=== PATIENT | female | born 1965 | race Caucasian/White ===

== ENCOUNTER 2020-03-16 12:56 | Inpatient (IN) | payer BC ==
[~2020-03-16] VITALS: Ht 152.4 cm; Wt 107.8 kg
[2020-03-16 14:12] LABS: Hematocrit 49.2 % (36.0-46.0); Hemoglobin 16.2 g/dL (12.2-16.2); Mean Corpuscular Hemoglobin 33.4 pg (28.0-32.0); Mean Corpuscular Volume 101.5 fL (80.0-100.0); Platelet Count (auto) 413 10^3/uL (140-450); Red Blood Cells 4.85 10^6/uL (4.0-5.20); Red Cell Distribution Width 13.2 % (11.8-14.3); White Blood Cell 15.6 10^3/uL (4.4-10.8)
[2020-03-16 14:20] LABS: Basophils % (manual) 0 (0.0-2.0); Blast Cells 0; Eosinophils % (manual) 0 (0-7); Metamyelocytes % 0; Myelocytes % 0; Promyelocytes % 0; Reactive Lymphocytes 0
[2020-03-16 14:26] LABS: Alanine Aminotransferase 10 U/L (13-56); Albumin 2.9 g/dL (3.4-5.0); Anion Gap 23 (5-15); Aspartate Aminotransferase 13 U/L (15-37); BUN/Creatinine Ratio 8.9; Blood Urea Nitrogen 11 mg/dL (7-18); Calcium 8.8 mg/dL (8.5-10.1); Chloride 103 mmol/L (98-107); GFR African American 58 mL/min; GFR Non-African American 48 mL/min; Glucose 308 mg/dL (74-106); Potassium 4.5 mmol/L (3.5-5.1); Sodium 132 mmol/L (136-145)
[2020-03-16 14:30] LABS: Band Neutrophils % (manual) 1; Lymphocytes % (manual) 14 (10.0-50.0); Monocytes % (manual) 4 (0-12)
[2020-03-16 14:31] LABS: Alkaline Phosphatase 141 U/L (45-117); Bilirubin, Total 0.5 mg/dL (0.2-1.0); Total Protein 9.5 g/dL (6.4-8.2)
[2020-03-16 14:37] LABS: Carbon Dioxide 6 mmol/L (21-32)
[2020-03-16] MEDS ORDERED: InsuLIN R (HUMAN) 100 UNITS in SODIUM CHL 0.9% 99 ML IV SCH (14:44)
[2020-03-16] MEDS ORDERED: SODIUM CHLORIDE 0.9% 1,000 ML IVB ONE (14:44)
[2020-03-16] MEDS ORDERED: TETANUS-DIPTH-ACEL PERTUSSIS 0.5ML SYR Tdap IM ONE (14:45)
[2020-03-16] MEDS ORDERED: CLINDAMYCIN 600MG IV 50 ML IV ONE (14:45)
[2020-03-16] MEDS ORDERED: DEXTROSE (50%) 50ML SYRG IV PRN ×2 (14:45→19:45)
[2020-03-16] MEDS ORDERED: SODIUM CHLORIDE 0.9% 1,000 ML IV ONE (14:45)
[2020-03-16] MEDS: ACCU-CHEK COMFORT CURVE STRIP VI SCH ×5 (15:38→23:10)
[2020-03-16 15:41] LABS: INR 0.95 (0.9-1.15); Partial Thromboplastin Time 33.4 sec (23.64-32.05)
[2020-03-16] MEDS ORDERED: SODIUM BICARBONATE 8.4 % INJ 50ML VIAL IV ONE ×3 (16:00→21:15)
[2020-03-16] MEDS ORDERED: MORPHINE SULF INJ 2 MG/ML SYRINGE 1ML IV PRN ×2 (17:30→19:45)
[2020-03-16] MEDS ORDERED: NITROGLYCERIN 0.4 MG SL TAB SL PRN (17:30)
[2020-03-16] MEDS: SODIUM CHLORIDE 0.9% 1,000 ML IV SCH (18:08)
[2020-03-16] MEDS ORDERED: SODIUM CHLORIDE 0.9% 1,000 ML IV SCH ×3 (18:44→23:38)
[2020-03-16] MEDS: InsuLIN R (HUMAN) 100 UNITS in SODIUM CHL 0.9% 99 ML IV SCH (19:38)
[2020-03-16] MEDS ORDERED: METOPROLOL TARTRATE 25 MG TAB PO ONE (19:45)
[2020-03-16] MEDS ORDERED: TEMAZEPAM 15 MG CAP PO PRN (19:45)
[2020-03-16] MEDS ORDERED: traMADol HCL 50 MG TAB PO PRN (19:45)
[2020-03-16] MEDS ORDERED: LABETALOL HCL 5 MG/ML 4ML SYRINGE IV PRN (19:45)
[2020-03-16] MEDS ORDERED: ACETAMINOPHEN 500 MG TAB PO PRN (19:45)
[2020-03-16] MEDS ORDERED: PROMETHAZINE HCL 25 MG/ML 1ML IV PRN (19:45)
[2020-03-16] MEDS ORDERED: INSULIN LANTUS (GLARGINE) 1 /0.01ml (100units/ml) SC ONE (19:45)
[2020-03-16] MEDS ORDERED: LACTULOSE 20Gm/30ML SOLN PO PRN (19:45)
[2020-03-16] MEDS ORDERED: METF-372 PO (20:23)
[2020-03-16] MEDS ORDERED: SODIUM BICARBONATE 50ML VIAL 100 ML in SOD CHL 0.45% 1,000 ML IV ONE (21:15)
[2020-03-17 00:27] LABS: Anion Gap 22 (5-15); BUN/Creatinine Ratio 12.8; Blood Urea Nitrogen 11 mg/dL (7-18); Chloride 113 mmol/L (98-107); GFR African American 88 mL/min; GFR Non-African American 73 mL/min; Glucose 203 mg/dL (74-106); Potassium 3.7 mmol/L (3.5-5.1); Sodium 142 mmol/L (136-145)
[2020-03-17] MEDS: ACCU-CHEK COMFORT CURVE STRIP VI SCH ×11 (00:30→21:54)
[2020-03-17 00:36] LABS: Carbon Dioxide 7 mmol/L (21-32)
[2020-03-17] MEDS: SODIUM CHLORIDE 0.9% 1,000 ML IV SCH ×6 (01:38→09:18)
[2020-03-17] MEDS: CLINDAMYCIN 600MG IV 50 ML IV SCH ×4 (01:40→21:52)
[2020-03-17] MEDS: InsuLIN R (HUMAN) 100 UNITS in SODIUM CHL 0.9% 99 ML IV SCH ×6 (02:10→09:15)
[2020-03-17 07:39] LABS: BUN/Creatinine Ratio 10.5; Calcium 8.5 mg/dL (8.5-10.1); Potassium 3.1 mmol/L (3.5-5.1)
[2020-03-17] MEDS ORDERED: cefTRIAXone 1GM/50ML D5W 50 ML IV SCH (09:00)
[2020-03-17 09:49] LABS: Hematocrit 42.6 % (36.0-46.0); Mean Corpuscular Hemoglobin 32.4 pg (28.0-32.0); Mean Corpuscular Hgb Conc. 32.8 g/dL (32.0-36.0); Mean Corpuscular Volume 98.9 fL (80.0-100.0); Platelet Count (auto) 322 10^3/uL (140-450); Red Blood Cells 4.31 10^6/uL (4.0-5.20); Red Cell Distribution Width 12.9 % (11.8-14.3)
[2020-03-17 09:53] LABS: Basophils % (manual) 0 (0.0-2.0); Blast Cells 0; Eosinophils % (manual) 0 (0-7); Metamyelocytes % 0; Myelocytes % 0; Promyelocytes % 0; Reactive Lymphocytes 0
[2020-03-17] MEDS ORDERED: INSULIN LANTUS (GLARGINE) 1 /0.01ml (100units/ml) SC SCH (10:00)
[2020-03-17 10:10] LABS: Band Neutrophils % (manual) 1; Lymphocytes % (manual) 14 (10.0-50.0); Monocytes % (manual) 10 (0-12)
[2020-03-17] MEDS: ENOXAPARIN SOD 40 MG/0.4 ML SYRINGE SC SCH (10:15)
[2020-03-17] MEDS: METOPROLOL TARTRATE 25 MG TAB PO SCH ×2 (10:15→21:52)
[2020-03-17 13:48] LABS: Albumin 2.1 g/dL (3.4-5.0); BUN/Creatinine Ratio 9.9; Calcium 8.1 mg/dL (8.5-10.1)
[2020-03-17 13:52] LABS: Bilirubin, Total 0.4 mg/dL (0.2-1.0); Total Protein 7.2 g/dL (6.4-8.2)
[2020-03-17 13:58] LABS: Potassium 2.8 mmol/L (3.5-5.1)
[2020-03-17] MEDS ORDERED: POTASSIUM CHL 20 Meq TABLET PO ONE (14:15)
[2020-03-17] MEDS ORDERED: POTASSIUM PHOSPHATE 44 MEQ in D5W 5% 250 ML IV ONE (14:15)
[2020-03-17] MEDS ORDERED: INSULIN LANTUS (GLARGINE) 1 /0.01ml (100units/ml) SC ONE (14:30)
[2020-03-17] MEDS ORDERED: DEXTROSE (50%) 50ML SYRG IV PRN (14:45)
--- NOTE | 2020-03-17 16:00 | NUR ---
Telemetry admit from N[facility] HINES admitted to Telemetry unit after SBAR received. Patient oriented to ARJUN CORTEZ RN primary RN, unit, room, bed, and unit policies regarding patient care and visiting hours. Patient now on continuous telemetry monitoring, tele box # [id number]. Patient weighed by bedscale and encouraged to call if they need something. All questions and concerns addressed, patient verbalized understanding.
[2020-03-17] MEDS: SOD CHL 0.45% WITH 20MEQ KCL 1,000 ML IV SCH ×2 (16:09→23:41)
[2020-03-17] MEDS: InsuLIN REG 1unit/0.01ml Soln (100units/ml) SC SCH ×2 (18:03→21:54)
--- NOTE | 2020-03-17 19:10 | NUR ---
Closing Shift Note Patient resting in bed. No distress noted. Will endorse care to the warehouse worker 2nd shift RN.
--- NOTE | 2020-03-17 19:30 | NUR ---
Opening Shift Note Assumed care of patient, awake and alert. No S/S of distress/SOB or pain. Instructed on POC and to call for assist PRN, will continue to monitor for changes Q1hr and PRN.
[2020-03-17 19:40] LABS: BUN/Creatinine Ratio 10.1; Calcium 8.4 mg/dL (8.5-10.1)
[2020-03-17 20:00] VITALS: BP 148/74
[2020-03-17 21:53] VITALS: BP 148/74
[2020-03-17] MEDS: INSULIN LANTUS (GLARGINE) 1 /0.01ml (100units/ml) SC SCH (21:54)
[2020-03-18 01:18] LABS: BUN/Creatinine Ratio 9.8
[2020-03-18 04:51] LABS: Basophils # (auto) 0 10 ^3/uL (0-0.2); Basophils % (auto) 0.5 % (0.0-2.0); Eosinophils # (auto) 0 10 ^3/uL (0-0.8); Eosinophils % (auto) 0.2 % (0.0-7.0); Hemoglobin 12.8 g/dL (12.2-16.2); Lymphocytes # (auto) 1.3 10 ^3/uL (0.4-5.4); Lymphocytes % (auto) 17.2 % (10.0-50.0); Mean Corpuscular Hemoglobin 32.7 pg (28.0-32.0); Mean Corpuscular Hgb Conc. 34.7 g/dL (32.0-36.0); Mean Corpuscular Volume 94.3 fL (80.0-100.0); Monocytes # (auto) 0.9 10 ^3/uL (0-1.3); Monocytes % (auto) 11.5 % (0.0-12.0); Neutrophils # (auto) 5.5 10 ^3/uL (1.6-8.6); Neutrophils % (auto) 70.6 % (37.0-80.0); Nucleated Red Blood Cells % 0.1 %; Platelet Count (auto) 289 10^3/uL (140-450); Red Blood Cells 3.92 10^6/uL (4.0-5.20); Red Cell Distribution Width 12.4 % (11.8-14.3); White Blood Cell 7.8 10^3/uL (4.4-10.8)
[2020-03-18 05:17] LABS: Calcium 8.3 mg/dL (8.5-10.1)
[2020-03-18 05:22] LABS: BUN/Creatinine Ratio 9.9; Bilirubin, Total 0.3 mg/dL (0.2-1.0); Total Protein 6.7 g/dL (6.4-8.2)
[2020-03-18] MEDS: CLINDAMYCIN 600MG IV 50 ML IV SCH ×3 (05:39→22:12)
[2020-03-18 05:44] VITALS: BP 124/68
[2020-03-18] MEDS: InsuLIN REG 1unit/0.01ml Soln (100units/ml) SC SCH ×4 (06:06→22:42)
[2020-03-18] MEDS: ACCU-CHEK COMFORT CURVE STRIP VI SCH ×4 (06:07→22:36)
[2020-03-18] MEDS: INSULIN LANTUS (GLARGINE) 1 /0.01ml (100units/ml) SC SCH ×2 (06:07→22:42)
[2020-03-18 09:00] VITALS: BP 125/68
[2020-03-18] MEDS: cefTRIAXone 1GM/50ML D5W 50 ML IV SCH (09:34)
[2020-03-18] MEDS: ENOXAPARIN SOD 40 MG/0.4 ML SYRINGE SC SCH (09:35)
[2020-03-18] MEDS ORDERED: POTASSIUM CHL 20 Meq TABLET PO ONE (09:45)
[2020-03-18] MEDS ORDERED: LORazepam 2MG/ML-1ML VIAL IV PRN (09:45)
--- NOTE | 2020-03-18 10:00 | NUR ---
WOUND CARE NOTE: Wound care in to see patient per wound care request regarding "Left Foot Wound". Bedside nurse took photograph of patient's wound upon admission for reference. Patient is 54 years old female with admitting diagnosis of DKA, L Foot Cellulitis/Necrotic. Patient is resting in bed in Rm. 208. Patient is awake, alert and oriented. She denies pain at this time. She's ambulatory and she's self turning and repositioning. Her Deshaun score is 19 . Noted patient's L plantar foot to lateral aspect of L foot has 4x15 cm red, open dry blister with blackened L 45th toe. Wound is dark red, with bright red edematous dorsal aspect of L foot. Scant serous drainage noted with foul odor noted. On reports, patient stepped on a wasp few days ago. Dr. Dickson arrived at bedside and talked to patient. MD states that Dr. Bonilla to see patient and possibly needing surgical intervention. Left wound open to air and elevated on pillows. Patient tolerated examination well. RECOMMENDATION: Podiatry consult, will defer wound care recommendation to director of religious activities dietary consult for wound, continue monitoring by wound care while patient is hospitalized. Addendum: 03/18/20 at 1520 by Amira Concepcion RN Amended: Links added.
[2020-03-18] MEDS: METOPROLOL TARTRATE 25 MG TAB PO SCH ×2 (10:06→22:12)
[2020-03-18] MEDS ORDERED: POTASSIUM PHOSPHATE 44 MEQ in D5W 5% 250 ML IV ONE (10:45)
--- NOTE | 2020-03-18 12:30 | NUR ---
Intensive Care Specialist Rounding Intensive Care Specialist at bedside with patient.
--- NOTE | 2020-03-18 12:40 | NUR ---
Compressor Mechanic Bus explained surgical procedure to patient and answered questions the patient had.
--- NOTE | 2020-03-18 12:58 | NUR ---
Surgical consent forms signed.
[2020-03-18 13:00] VITALS: BP 148/72
[2020-03-18 13:59] LABS: INR 1.02 (0.9-1.15); Partial Thromboplastin Time 29.9 sec (23.64-32.05)
[2020-03-18 16:00] VITALS: BP 122/66
[2020-03-18 16:21] LABS: Urine Bacteria NONE SEEN /hpf (None Seen); Urine Blood 3+ /uL (Negative); Urine Budding Yeast LOADED /hpf (None Seen); Urine Hyaline Cast FEW /lpf (0 - 2); Urine Mucus FEW (None Seen); Urine Specific Gravity 1.019 (1.001-1.035); Urine WBC 127 /hpf (0 - 5)
--- NOTE | 2020-03-18 16:25 | NUR ---
Off Unit Patient taken down to PACU for surgery.
[2020-03-18] MEDS ORDERED: LIDOCAINE 1% HCL (LOCAL ANESTH.) INJ 20ML MDV ONE (17:14)
[2020-03-18] MEDS ORDERED: BUPIVACAINE HCL 50 ML ONE (17:14)
[2020-03-18] MEDS ORDERED: ceFAZolin 1GM/50ML 50 ML IV ONE (17:14)
[2020-03-18] MEDS ORDERED: METOCLOPRAMIDE HCL 5MG/ml INJ 2ml VIAL ONE (17:22)
[2020-03-18] MEDS ORDERED: MIDAZOLAM HCL 1MG/1ML-2 ML VIAL ONE (17:22)
[2020-03-18] MEDS ORDERED: GLYCOPYRROLATE 0.2 MG/ML 1ML VIAL ONE (17:26)
[2020-03-18] MEDS ORDERED: diphenhdrAMINE HCL 50 MG/1 ML VL ONE (17:26)
[2020-03-18] MEDS ORDERED: LIDOCAINE 2% (LOCAL ANESTH.) PF 5ml SDV ONE (17:28)
[2020-03-18] MEDS ORDERED: PROPOFOL 10 MG/ML 20 ML IV ONE ×3 (17:29→18:52)
[2020-03-18] MEDS ORDERED: LIDOCAINE HCL 2% TOP JELLY 5ML TOP ONE (17:37)
[2020-03-18] MEDS ORDERED: fentaNYL CITRATE 100 MCG/2 ML VL ONE (17:43)
[2020-03-18] MEDS ORDERED: BACITRACIN INJ 50000 UNIT VIAL ONE (17:46)
[2020-03-18] MEDS ORDERED: ACCU-CHEK COMFORT CURVE STRIP VI ONE (18:00)
[2020-03-18] MEDS ORDERED: ONDANSETRON HCL 4 MG/2 ML VIAL IV PRN (18:00)
[2020-03-18] MEDS ORDERED: HYDROmorphone HCL 2 MG/ML VL IV PRN ×2 (18:00)
[2020-03-18] MEDS ORDERED: NALOXONE HCL 0.4 MG/ML VIAL IV PRN (18:00)
[2020-03-18] MEDS ORDERED: ePHEDrine SULFATE 50 MG/ML AMP IV PRN (18:00)
--- NOTE | 2020-03-18 19:25 | NUR ---
received report from AUGUSTINA Juarez PACU.
--- NOTE | 2020-03-18 19:50 | NUR ---
sewer system supervisor the pt from PACU. VS stable. Denies pain
[2020-03-18] MEDS: SOD CHL 0.45% WITH 20MEQ KCL 1,000 ML IV SCH (20:00)
--- NOTE | 2020-03-18 21:04 | NUR ---
spoke with Dr. Bonilla over the phone regarding pt's status stated he already put in the orders in the computer and ordered to resume the previous diet.
[2020-03-18 22:00] VITALS: BP 145/83
[2020-03-19] MEDS: OXYCODONE W/ ACETAMINOPHEN 5/325MG TABLET PO PRN ×5 (04:16→22:57)
[2020-03-19 05:00] VITALS: BP 125/68
[2020-03-19 05:28] LABS: Basophils # (auto) 0 10 ^3/uL (0-0.2); Basophils % (auto) 0.3 % (0.0-2.0); Eosinophils # (auto) 0 10 ^3/uL (0-0.8); Hematocrit 36.2 % (36.0-46.0); Hemoglobin 12.5 g/dL (12.2-16.2); Lymphocytes # (auto) 0.8 10 ^3/uL (0.4-5.4); Lymphocytes % (auto) 9.1 % (10.0-50.0); Mean Corpuscular Hemoglobin 32.5 pg (28.0-32.0); Mean Corpuscular Hgb Conc. 34.7 g/dL (32.0-36.0); Mean Corpuscular Volume 93.6 fL (80.0-100.0); Monocytes # (auto) 1.1 10 ^3/uL (0-1.3); Monocytes % (auto) 12.2 % (0.0-12.0); Neutrophils # (auto) 6.8 10 ^3/uL (1.6-8.6); Neutrophils % (auto) 78.4 % (37.0-80.0); Platelet Count (auto) 252 10^3/uL (140-450); Red Blood Cells 3.87 10^6/uL (4.0-5.20); Red Cell Distribution Width 12.5 % (11.8-14.3); White Blood Cell 8.7 10^3/uL (4.4-10.8)
[2020-03-19 06:01] LABS: Potassium 3.2 mmol/L (3.5-5.1)
[2020-03-19] MEDS: ACCU-CHEK COMFORT CURVE STRIP VI SCH ×4 (06:01→21:49)
[2020-03-19] MEDS: CLINDAMYCIN 600MG IV 50 ML IV SCH ×3 (06:02→21:50)
[2020-03-19] MEDS: SOD CHL 0.45% WITH 20MEQ KCL 1,000 ML IV SCH ×2 (06:02→21:47)
[2020-03-19 06:13] LABS: BUN/Creatinine Ratio 13.7; Calcium 8.4 mg/dL (8.5-10.1)
[2020-03-19] MEDS: InsuLIN REG 1unit/0.01ml Soln (100units/ml) SC SCH ×4 (06:19→21:46)
[2020-03-19] MEDS: INSULIN LANTUS (GLARGINE) 1 /0.01ml (100units/ml) SC SCH ×2 (06:20→21:46)
--- NOTE | 2020-03-19 07:30 | NUR ---
RECEIVED REPORT FROM NIGHT NURSE. PATIENT RESTING IN BED, NO DISTRESS NOTED. WILL CONTINUE TO MONITOR.
[2020-03-19 09:00] VITALS: BP 107/60
[2020-03-19] MEDS: cefTRIAXone 1GM/50ML D5W 50 ML IV SCH (10:17)
[2020-03-19] MEDS: ENOXAPARIN SOD 40 MG/0.4 ML SYRINGE SC SCH (10:17)
[2020-03-19] MEDS: METOPROLOL TARTRATE 25 MG TAB PO SCH ×2 (10:18→21:49)
--- NOTE | 2020-03-19 10:41 | NUR ---
SPOKE WITH DR QUINTERO ON THE PHONE. UPDATED HIM ON PATIENT STATUS.
--- NOTE | 2020-03-19 11:59 | NUR ---
DOCTOR CHAN AT BEDSIDE.
[2020-03-19 13:00] VITALS: BP 114/62
--- NOTE | 2020-03-19 13:52 | NUR ---
Nutrition Assessment Notes Please refer to link for full assessment notes. Est Energy needs: 5184-4318 kcals (25-30 kcal/kgAdjBW) d/t pt wounds Est Protein needs: 91-114 gms/day (2.0-2.5 gm/kgIBW) d/t pt adiposity Will continue to monitor and reassess prn. Addendum: 03/19/20 at [address] Amended: Links added.
--- NOTE | 2020-03-19 14:30 | NUR ---
DRESSING CHANGE OLD DRESSING TO LEFT FOOT REMOVED, PACKING REMOVED. WOUND CLEANSED, MILD DRAINAGE NOTED ON OLD DRESSING. NO ACTIVE BLEEDING. WOUND PACKED WITH 1/2 " PACKING GAUZE, ABD. PAD, AND KERLIX APPLIED. PATIENT TOLERATED IT WELL, WILL CONTINUE TO MONITOR FOR BLEEDING/ DRAINAGE.
[2020-03-19 17:00] VITALS: BP 117/73
[2020-03-19 22:00] VITALS: BP 115/60
[2020-03-20 04:00] VITALS: BP 108/65
[2020-03-20] MEDS: INSULIN LANTUS (GLARGINE) 1 /0.01ml (100units/ml) SC SCH ×2 (06:44→22:00)
[2020-03-20] MEDS: InsuLIN REG 1unit/0.01ml Soln (100units/ml) SC SCH ×4 (06:45→22:00)
[2020-03-20] MEDS: CLINDAMYCIN 600MG IV 50 ML IV SCH ×3 (06:46→21:41)
[2020-03-20] MEDS: OXYCODONE W/ ACETAMINOPHEN 5/325MG TABLET PO PRN ×4 (06:47→21:41)
[2020-03-20] MEDS: ACCU-CHEK COMFORT CURVE STRIP VI SCH ×4 (06:49→22:00)
--- NOTE | 2020-03-20 07:30 | NUR ---
RECEIVED REPORT FROM NIGHT NURSE. PATIENT RESTING IN BED, NO DISTRESS NOTED. WILL CONTINUE TO MONITOR.
[2020-03-20 08:10] VITALS: BP 125/65
[2020-03-20] MEDS: cefTRIAXone 1GM/50ML D5W 50 ML IV SCH (09:35)
[2020-03-20] MEDS: METOPROLOL TARTRATE 25 MG TAB PO SCH ×2 (09:35→21:44)
[2020-03-20] MEDS: ENOXAPARIN SOD 40 MG/0.4 ML SYRINGE SC SCH (09:35)
[2020-03-20] MEDS: SOD CHL 0.45% WITH 20MEQ KCL 1,000 ML IV SCH ×2 (10:25→23:45)
[2020-03-20 10:46] LABS: Calcium 8.7 mg/dL (8.5-10.1); Magnesium 2.1 mg/dL (1.6-2.6); Potassium 3.6 mmol/L (3.5-5.1)
[2020-03-20 10:49] LABS: BUN/Creatinine Ratio 17.9
--- NOTE | 2020-03-20 10:55 | NUR ---
King BANKS NP AT BEDSIDE.
--- NOTE | 2020-03-20 11:00 | NUR ---
EKG COMPLETED AND PLACED IN CHART.
--- NOTE | 2020-03-20 12:45 | NUR ---
DRESSING CHANGE OLD DRESSING TO LEFT FOOT REMOVED, PACKING REMOVED. WOUND CLEANSED. NO ACTIVE BLEEDING. WOUND PACKED WITH 1/2 " PACKING GAUZE, ABD. PAD, AND KERLIX APPLIED. PATIENT TOLERATED IT WELL, WILL CONTINUE TO MONITOR FOR BLEEDING/ DRAINAGE.
[2020-03-20 13:00] VITALS: BP 145/82
[2020-03-20 13:18] LABS: Cholesterol 108 mg/dL (< 200)
[2020-03-20 13:20] LABS: HDL Cholesterol 50 mg/dL (40-59); LDL Cholesterol 47 mg/dL (< 100); Triglycerides 82 mg/dL (< 150)
[2020-03-20 17:27] VITALS: BP 131/78
--- NOTE | 2020-03-20 19:35 | NUR ---
Opening Shift Note Assumed care of patient, awake and alert. No S/S of distress/SOB or pain. Dressing to left foot intact and dry. Instructed on POC and to be NPO after MN. For Stress test tomorrow, patient verbalized understanding. Instructed to call for assist PRN, bed in lowest position, call light within reach, will continue to monitor for changes Q1hr and PRN.
[2020-03-20 20:00] VITALS: BP 120/56
[2020-03-20] MEDS: ATORVASTATIN 20 MG TAB PO SCH (21:41)
--- NOTE | 2020-03-20 22:00 | NUR ---
Dressing to left foot changed. Cleansed with wound cleanser, packed with Iodoform and covered with ABD pad and wrapped with kerlix. Patient tolerated well
[2020-03-21 05:00] VITALS: BP 121/62
[2020-03-21] MEDS: CLINDAMYCIN 600MG IV 50 ML IV SCH ×3 (06:18→22:10)
[2020-03-21] MEDS: InsuLIN REG 1unit/0.01ml Soln (100units/ml) SC SCH ×4 (06:19→22:14)
[2020-03-21] MEDS: ACCU-CHEK COMFORT CURVE STRIP VI SCH ×4 (06:19→22:10)
[2020-03-21] MEDS: INSULIN LANTUS (GLARGINE) 1 /0.01ml (100units/ml) SC SCH ×2 (06:19→22:13)
--- NOTE | 2020-03-21 06:19 | NUR ---
IV insertion IV access obtained, via clean sterile technique by inserting 20 gauge catheter at LFA after [1] attempt(s). IV secured properly. No trauma to site. Patient tolerated well. NOTE: []
--- NOTE | 2020-03-21 07:30 | NUR ---
RECEIVED REPORT FROM NIGHT NURSE. PATIENT RESTING IN BED, NO DISTRESS NOTED. NPO FOR PROCEDURE. WILL CONTINUE TO MONITOR.
[2020-03-21 09:00] VITALS: BP 158/79
[2020-03-21] MEDS ORDERED: ADENOSINE 97 MG in GIVE UN-DILUTED 0 ML IV STA (09:39)
[2020-03-21] MEDS: OXYCODONE W/ ACETAMINOPHEN 5/325MG TABLET PO PRN ×4 (10:00→23:31)
[2020-03-21] MEDS ORDERED: POTASSIUM CHL 20 Meq TABLET PO ONE (10:45)
[2020-03-21 11:49] VITALS: BP 140/86
[2020-03-21] MEDS: METOPROLOL TARTRATE 25 MG TAB PO SCH ×2 (13:46→21:51)
[2020-03-21] MEDS: cefTRIAXone 1GM/50ML D5W 50 ML IV SCH (13:46)
[2020-03-21] MEDS: ENOXAPARIN SOD 40 MG/0.4 ML SYRINGE SC SCH (13:46)
--- NOTE | 2020-03-21 15:03 | NUR ---
IV REMOVAL IV TO RIGHT WRIST REMOVED. SWELLING AND REDNESS NOTED TO INSERTION SITE. CATHETER TIP INTACT, PRESSURE DRESSING APPLIED, ICE PACK GIVEN.
--- NOTE | 2020-03-21 16:39 | NUR ---
DOCTOR LATHA AT BEDSIDE. ORDERS FOR WOUND VAC TO BE APPLIED NOW. WILL NOTIFY WOUND CARE NURSE, NAOMI.
[2020-03-21 17:00] VITALS: BP 138/79
--- NOTE | 2020-03-21 17:00 | NUR ---
WOUND CARE NURSE AT BEDSIDE.
--- NOTE | 2020-03-21 17:42 | NUR ---
WOUND CARE NOTE: Wound care in to see patient to apply wound vac to patient's L Foot wound per Dr. Marcano's order. Patient undergone Irrigation and Debridement of L Foot, Left Foot Ray amputation, removal of all non-viable tissue and bone by Dr. Bonilla. Patient is resting in bed in Rm 208. Patient is awake, alert and oriented. Patient is premedicated for pain by bedside nurse prior dressing change. She's self turning and repositioning and her Deshaun score is 14. Patient education given regarding NPWT, verbalized understanding. Removed patient's L foot wound dressing and packing. Cleansed patient's L Foot wound with NS,patted dry with gauze. Patient has large open wound from L plantar to L dorsal foot. L foot wound measuring 6x11.5x2.2cm. Wound bed is red with granulation tissue noted to plantar aspect of foot, yellow adipose tissue to dorsal aspect of left foot with visible bone noted. Periwound is pink with mild edema, minimal sanguineous drainage noted, no odor noted, pedal pulse present. Applied Sure Prep skin protectant to domenic wound and drape to dorsal aspect of L foot. Applied one small piece petrolatum gauze to protect exposed bone. Fill wound cavity with two pieces black GranuFoam. Secured foam dressing with transparent drape and applied trac pad. Connected tubings and run wound vac as ordered at 125 mmHg continuos. Good suction noted, no leak detected. New photograph of wound are taken for reference. Patient tolerated well. Elevated patient's LLE on pillows. RECOMMENDATION: Q3Days/PRN dressing change to L foot wound per MD order, continue with skin/wound plan of care, continue monitoring by wound care while patient is hospitalized. Addendum: 03/21/20 at 1816 by Amira Concepcion RN Amended: Links added.
--- NOTE | 2020-03-21 18:39 | NUR ---
HOME WOUND VAC: Home wound vac form request filled up and signed by Dr. Marcano. Placed in patient's chart for social service
--- NOTE | 2020-03-21 19:35 | NUR ---
Opening Shift Note Assumed care of patient, asleep at this time. No S/S of distress/SOB or pain. Noted left foot dressing intact and connected to wound vac. Bed in lowest and locked position, call light within reach, will continue to monitor for changes Q1hr and PRN.
[2020-03-21] MEDS: ATORVASTATIN 20 MG TAB PO SCH (21:50)
[2020-03-21 22:00] VITALS: BP 148/81
[2020-03-22 05:49] VITALS: BP 140/80
[2020-03-22] MEDS: CLINDAMYCIN 600MG IV 50 ML IV SCH ×3 (06:33→22:32)
[2020-03-22] MEDS: ACCU-CHEK COMFORT CURVE STRIP VI SCH ×4 (06:34→22:32)
[2020-03-22] MEDS: INSULIN LANTUS (GLARGINE) 1 /0.01ml (100units/ml) SC SCH ×2 (06:35→22:00)
[2020-03-22] MEDS: InsuLIN REG 1unit/0.01ml Soln (100units/ml) SC SCH ×4 (06:38→22:00)
--- NOTE | 2020-03-22 08:00 | NUR ---
RECEIVED PATIENT ALERT AND ORIENTED X4, NOT IN DISTRESS, CLEAR LS IN BILATERAL UPPER AND LOWER LUNG LOBES, RR=18 SAT=95%, DEEP BREATHING AND COUGHING WAS ENCOURAGED, DEMONSTRATED AND VERBALIZED UNDERSTANDING, DENIED SOB AND CP AT THIS MOMENT SR R=78 ON TELE MONITOR, ABDOMEN SOFT WITH ACTIVE BS, TOLERATED PROVIDED BREAKFAST 100%, LAST BM=03/14/20 REPORTED, RINCON CATH IN PLACE AND PATENT, DRAINING CLEAR YELLOW URINE, GENERAL SKIN INTACT WARM TO TOUCH, LT. FOOT DRESSING DRY AND INTACT, WOUND VAC IN PLACE AND PATENT, NO DRAIN OUT PUT NOTED, RESTING ON BED, HEAD OF BED ELEVATED, BED ON LOW POSITION, RAILS UP X2, CALL LIGHT ON REACH, PENDING HEART CATH ON 03/23/20 ORDERED, WILL CONTINUE MONITORING.
[2020-03-22] MEDS: cefTRIAXone 1GM/50ML D5W 50 ML IV SCH (08:57)
[2020-03-22] MEDS: ENOXAPARIN SOD 40 MG/0.4 ML SYRINGE SC SCH (08:59)
[2020-03-22] MEDS: METOPROLOL TARTRATE 25 MG TAB PO SCH ×2 (08:59→22:30)
[2020-03-22 09:00] VITALS: BP 154/84
[2020-03-22] MEDS: OXYCODONE W/ ACETAMINOPHEN 5/325MG TABLET PO PRN ×3 (09:08→23:58)
--- NOTE | 2020-03-22 11:00 | NUR ---
WOUND CARE NOTE: IN TO ASSESS FUNCTION OF WOUND VAC DRESSING TO LEFT FOOT AT THIS TIME. VAC IS RUNNING AT 125 MM/HG CONTINUOUS. GOOD SUCTION, NO LEAKS DETECTED. WOUND CARE TEAM WILL CONTINUE TO MONITOR.
--- NOTE | 2020-03-22 12:02 | NUR ---
Nutrition Followup Notes Wt: 113.8 kg Pt` sleeping with no family by bedside. per records pt with abnormal stress test and to have [facility] jody. pt with no distress noted currently on CCHO 45 gm diet with inadequate PO of < 50% x 4 per RN doc Est Energy needs: 0939-9712 kcals (25-30 kcal/kgAdjBW) d/t pt wounds, Est Protein needs: 91-114 gms/day (2.0-2.5 gm/kgIBW) dt pt adiposity. Will continue to monitor and reassess prn. LABS: GLU 230 H GI: Pt had 1 BM 03/16 per RN doc BS: 16 mod risk Refer to wound assessment report for full details. PES: 1) Obesity aeb 251% IBW and BMI of 49.1 kg/m2 r/t energy intake in excess of energy needs 2) Food and nutrition knowledge deficit aeb wounds, DKA diagnosis, request for DM education class schedule r/t dietary non-compliance 3) Altered nutrition related lab values hyperglycemia, elev A1c, severe hypoalbuminemia Will continue to monitor skin status, PO intake. F/u mod 3-5 days Rec: 1) Continue to closely monitor pt PO intake to meet at least 75% of meals. 2) Suggest a CCHO 60g diet. 4) Consider a daily MVI with 500mg VitC BID. 5) If albumin continues trending down, consider Prostat 1 pkt BID. 6) Refer pt to RD/CDE for nutrition education upon D/C. 7) Continue current plan of care
[2020-03-22 12:27] LABS: INR 1.07 (0.9-1.15)
[2020-03-22 12:54] VITALS: BP 129/74
[2020-03-22] MEDS: ASPirin 81 mg TAB PO SCH (13:44)
--- NOTE | 2020-03-22 14:10 | NUR ---
Midline Placement: Patient educated on need for midline placement. All risks and benefits explained and all questions and concerns addresses prior to procedure. 18g/10cm midline inserted via left cephalic vein using Ultrasound. Sterile technique utilized. Blood return obtained from lumen and flushed easily with NS using proper technique. Midline secured with saline lock; biodisc and occlusive dressing applied. Primary RN notified.
--- NOTE | 2020-03-22 16:15 | NUR ---
Assessment Patient is a 55-year-old female who is alert and oriented. Prior to admission patient lived home with family and function independently. Patient can care for her own ADLs. Per patient she does not have any medical equipment now. Per patient she will return to her prior living arrangements post discharge and family will transport her home. Advise patient there is a social service consult for home health for wound care, wound vac, and IV abx. Informed patient clinical information will be faxed to contracted agency for home health and wound vac. Informed patient YAHIR Robbins will complete the IV abx. Informed patient she has the right to participate in all discharge planning. Patient verbalized understanding and agreed to discharge plan. Faxed clinical information to [facility] to deliver wheelchair to bed side, [facility] to deliver wound vac supply to bedside and to health plan to assist with contracted home health agencies. Faxed clinical information to [facility] and [facility]. Per Dinorah with [facility] they do not have nurse availability at this time. Pending on [facility]. Addendum: 03/22/20 at 1618 by ERENDIRA LAWSON Amended: Links added.
[2020-03-22 17:00] VITALS: BP 139/85
--- NOTE | 2020-03-22 19:35 | NUR ---
Opening Shift Note Assumed care of patient, awake and alert. No S/S of distress/SOB or pain. Noted left foot dressing intact and connected to wound vac. Instructed on POC and to be NPO after MN, for C tomorrow, patient verbalized understanding. Bed in lowest and locked position, call light within reach, will continue to monitor for changes Q1hr and PRN
--- NOTE | 2020-03-22 19:53 | NUR ---
REPORT WAS GIVEN TO THE GENERAL COUNSELOR RN.
[2020-03-22 22:00] VITALS: BP 151/83
[2020-03-22] MEDS: ATORVASTATIN 20 MG TAB PO SCH (22:28)
[2020-03-23] VITALS (11 sets, daily range): BP systolic 114–145; BP diastolic 58–85
[2020-03-23] MEDS: ACCU-CHEK COMFORT CURVE STRIP VI SCH ×4 (06:23→22:15)
[2020-03-23] MEDS: CLINDAMYCIN 600MG IV 50 ML IV SCH (06:23)
[2020-03-23] MEDS: INSULIN LANTUS (GLARGINE) 1 /0.01ml (100units/ml) SC SCH ×2 (06:24→22:12)
[2020-03-23] MEDS: InsuLIN REG 1unit/0.01ml Soln (100units/ml) SC SCH ×4 (06:24→22:00)
--- NOTE | 2020-03-23 06:47 | NUR ---
Per patient, spoke to her already about the risks and benefits of left heart cath. Patient signed consent form and attached to chart. CHG wipes done, maintained on NPO, will endorse to jeramie JACKMAN
[2020-03-23 07:16] LABS: Basophils # (auto) 0 10 ^3/uL (0-0.2); Basophils % (auto) 0.2 % (0.0-2.0); Eosinophils # (auto) 0.1 10 ^3/uL (0-0.8); Eosinophils % (auto) 1.4 % (0.0-7.0); Hematocrit 41.5 % (36.0-46.0); Lymphocytes # (auto) 1.1 10 ^3/uL (0.4-5.4); Lymphocytes % (auto) 19.3 % (10.0-50.0); Mean Corpuscular Hemoglobin 32.2 pg (28.0-32.0); Mean Corpuscular Hgb Conc. 33.8 g/dL (32.0-36.0); Mean Corpuscular Volume 95.2 fL (80.0-100.0); Monocytes # (auto) 0.7 10 ^3/uL (0-1.3); Monocytes % (auto) 13.2 % (0.0-12.0); Neutrophils # (auto) 3.7 10 ^3/uL (1.6-8.6); Neutrophils % (auto) 65.9 % (37.0-80.0); Nucleated Red Blood Cells % 0.1 %; Platelet Count (auto) 316 10^3/uL (140-450); Red Blood Cells 4.35 10^6/uL (4.0-5.20); White Blood Cell 5.6 10^3/uL (4.4-10.8)
[2020-03-23 07:34] LABS: INR 1.03 (0.9-1.15); Partial Thromboplastin Time 28.3 sec (23.64-32.05)
[2020-03-23 07:36] LABS: BUN/Creatinine Ratio 18.6
[2020-03-23] MEDS: METOPROLOL TARTRATE 25 MG TAB PO SCH ×2 (07:51→22:08)
[2020-03-23] MEDS: cefTRIAXone 1GM/50ML D5W 50 ML IV SCH (07:51)
[2020-03-23] MEDS: OXYCODONE W/ ACETAMINOPHEN 5/325MG TABLET PO PRN ×3 (07:53→22:13)
--- NOTE | 2020-03-23 08:00 | NUR ---
LOWER LUNG LOBES, RR=18 SAT=97%, DEEP BREATHING AND COUGHING WAS ENCOURAGED, DEMONSTRATED AND VERBALIZED UNDERSTANDING, DENIED SOB AND CP AT THIS MOMENT SR R=70 ON TELE MONITOR, ABDOMEN SOFT WITH ACTIVE BS, KEEP NPO ORDERED, LAST BM=03/22/20 REPORTED, RINCON CATH IN PLACE AND PATENT, DRAINING CLEAR YELLOW URINE, GENERAL SKIN INTACT WARM TO TOUCH, LT. FOOT DRESSING DRY AND INTACT, WOUND VAC IN PLACE AND PATENT, NO DRAIN OUT PUT NOTED, RESTING ON BED, HEAD OF BED ELEVATED, BED ON LOW POSITION, RAILS UP X2, CALL LIGHT ON REACH, PENDING HEART CATH TODAY ORDERED, PACKING FLOOR WORKER CONTACTED FOR FOLLOW UP, WILL CONTINUE MONITORING.
--- NOTE | 2020-03-23 08:34 | NUR ---
D/C Planning Received a follow up called from [facility] advising me they will not be able to accommodate patient needs.
[2020-03-23] MEDS ORDERED: LIDOCAINE 2%HCL (LOCAL ANESTH.) INJ 20ML MDV ONE (09:01)
[2020-03-23] MEDS ORDERED: ANGIOMAX 250 MG VIAL IV ONE (09:06)
[2020-03-23] MEDS ORDERED: SODIUM CHL 0.9% 0 ML ONE (09:07)
[2020-03-23] MEDS ORDERED: MIDAZOLAM HCL 1MG/1ML-2 ML VIAL ONE (09:07)
[2020-03-23] MEDS ORDERED: VERAPAMIL 2.5MG/ML INJ 2ML VIAL IV ONE (09:07)
[2020-03-23] MEDS ORDERED: fentaNYL CITRATE 100 MCG/2 ML VL ONE (09:07)
[2020-03-23] MEDS ORDERED: HEPARIN SODIUM (PORCINE) 5000 UNITS/ML 1ML VIAL ONE (09:07)
--- NOTE | 2020-03-23 09:07 | NUR ---
CONSENT ON CHART, CHECK LIST COMPLETED, NOT IN DISTRESS, DENIED PAIN, VS T=98.6 RR=16 SAT=98% P=72 AZ=421/55, WENT ON BED TO IS MANAGER, WILL CONTINUE FOLLOW UP.
[2020-03-23] MEDS: ENOXAPARIN SOD 40 MG/0.4 ML SYRINGE SC SCH (10:00)
[2020-03-23] MEDS: ASPirin 81 mg TAB PO SCH (10:00)
--- NOTE | 2020-03-23 10:33 | NUR ---
I spoke with Dr. Dickson regarding the plan of care for this patient-I asked her to clarify the home IV ATB order-stating specific medication, dose and frequency. Per Dr. Dickson, patient will not discharge home today-most likely tomorrow.
--- NOTE | 2020-03-23 10:56 | NUR ---
WOUND VAC CHECK: Wound care in for wound vac daily monitoring. Patient's L foot wound vac dressing remain intact and connected to Ulta Vac, functioning well at 125 mmHg continuos as ordered. Good seal noted, no leak detected. No drainage noted in canister. Will continue to monitor.
--- NOTE | 2020-03-23 10:57 | NUR ---
I faxed home IV ATB order/clinical information to [facility].
--- NOTE | 2020-03-23 11:52 | NUR ---
D/C planning Received a follow up called from Best with [facility] advising me wheelchair will be deliver to bedside between 11-13:00 today.
--- NOTE | 2020-03-23 12:30 | NUR ---
AT 1045 CAME BACK FROM HEART CATH, ALERT AND ORIENTED X4, NOT IN DISTRESS, DENIED PAIN, RR=16 SAT=98% P=82, RT.W ANGIO PRESSURE DRESSING DRY AND INTACT, NO EDEMA OR ECCHYMOSIS NOTED, POST HEART CATH PROTOCOL AND PRESSURE DRESSING PROTOCOL FOLLOWED ORDERED, RESTING ON BED, WILL CONTINUE MONITORING.
[2020-03-23] MEDS: CLINDAMYCIN HCL 150 MG CAP PO SCH ×2 (13:14→22:07)
--- NOTE | 2020-03-23 15:21 | NUR ---
D/C planning Faxed clinical information to [facility]. Per Paulette she will contact patient health plan and will follow up in the morning regarding acceptance.
--- NOTE | 2020-03-23 17:50 | NUR ---
WOUND CARE NOTE: Dr. Marcano came, removed patient's L foot wound vac dressing to examine patient's L Foot wound. MD ordered apply new wound vac dressing. Patient is resting in bed in Rm. 208. Patient is awake, alert and oriented. She's medicated for pain by her bedside nurse prior dressing change. Patient's L dorsal foot wound measuring 8x9cm. Wound is red with yellow slough, domenic wound is pink. Visible tendon noted. Plantar aspect of L foot wound measuring 5.5x6x1.5cm. Wound is red with granulation tissue noted and sexton/brown slough. Minimal serous drainage noted, no odor noted. Cleansed patient's L foot wound with NS,patted dry with gauze. Applied skin protectant and transparent drape to domenic wound to protect. Fill wound cavity with one piece medium black Granu foam dressing, secured with transparent drape. Applied trac pad and connected to wound vac. Run wound vac at 125 mmHg as prescribed. Good suction noted, no leak detected. Patient tolerated examination well. New photograph of wound are taken for reference. RECOMMENDATION:Continuation of all wound care orders prescribed by MD,continue with skin/wound plan of care, continue monitoring by wound care while patient is hospitalized. Addendum: 03/23/20 at 1823 by Amira Concepcion RN Amended: Links added.
--- NOTE | 2020-03-23 18:00 | NUR ---
DR. Bishop OPENED THE WOUND, WOUND DRESSING WAS CHANGED BY THE WOUND CARE, TOLERATED WELL, NO DRAIN OUT PUT FROM WOUND VAC NOTED, HOME WOUND VAC DELIVERED TO THE ROOM, EDUCATION WAS PROVIDED, VERBALIZED UNDERSTANDING, RESTING ON BED,NOT IN DISTRESS, DENIED PAIN, WILL CONTINUE MONITORING.
--- NOTE | 2020-03-23 19:41 | NUR ---
REPORT WAS GIVEN TO THE REPLANTING MACHINE CREWMAN RN.
[2020-03-23] MEDS: ATORVASTATIN 20 MG TAB PO SCH (22:07)
[2020-03-24 05:05] VITALS: BP 144/84
[2020-03-24] MEDS: CLINDAMYCIN HCL 150 MG CAP PO SCH ×2 (06:43→15:07)
[2020-03-24] MEDS: InsuLIN REG 1unit/0.01ml Soln (100units/ml) SC SCH ×3 (06:45→17:00)
[2020-03-24] MEDS: ACCU-CHEK COMFORT CURVE STRIP VI SCH ×3 (06:46→17:00)
[2020-03-24] MEDS: INSULIN LANTUS (GLARGINE) 1 /0.01ml (100units/ml) SC SCH (06:48)
--- NOTE | 2020-03-24 06:59 | NUR ---
Pt medicated at the beginning of shift and at the end, slept well, no s/s of distress, aware of consult with wound care nurse for wound vac at co.
--- NOTE | 2020-03-24 08:00 | NUR ---
Morning note Patient resting in bed with even and unlabored respirations, no distress noted. Instructed patient on POC, fall precautions and to call for assistance as needed. Patient verbalized understanding. Wound vac in place per MD order. Fall precautions in place with call light within reach.
[2020-03-24 09:22] VITALS: BP 140/86
[2020-03-24] MEDS ORDERED: CEFTRIAXONE SODIUM 2 GM in D5W 5% 50 ML IV SCH (10:00)
--- NOTE | 2020-03-24 10:04 | NUR ---
I called Omid at [facility] [phone] to let him know that [facility] will be following patient, plan is for discharge home today. Per Omid he will call me back to let me know when delivery time will be.
[2020-03-24] MEDS: ENOXAPARIN SOD 40 MG/0.4 ML SYRINGE SC SCH (10:14)
[2020-03-24] MEDS: ASPirin 81 mg TAB PO SCH (10:14)
[2020-03-24] MEDS: METOPROLOL TARTRATE 25 MG TAB PO SCH (10:15)
[2020-03-24] MEDS ORDERED: MET25T PO (10:16)
[2020-03-24] MEDS ORDERED: LOSA25TA38 PO (10:16)
[2020-03-24] MEDS ORDERED: CLIN150C7 PO (10:16)
[2020-03-24] MEDS ORDERED: ASPI81CH43 PO (10:16)
[2020-03-24] MEDS ORDERED: SACC1CAP3 PO (10:18)
[2020-03-24] MEDS ORDERED: METF-372 PO (10:18)
[2020-03-24] MEDS ORDERED: SITA50TA PO (10:18)
--- NOTE | 2020-03-24 10:23 | NUR ---
Cazares catheter discontinued Order to discontinue Cazares catheter. Cazares discontinued with clean technique following deflation of balloon. Patient tolerated well with no complaints of pain. 500 ml of clear yellow urine drained.
--- NOTE | 2020-03-24 10:23 | NUR ---
PT at bedside - RE: Crutches Viridiana, PT, aware of MD's order for crutches. PT to evaluate patient.
[2020-03-24] MEDS ORDERED: ATOR10TA52 PO (10:36)
--- NOTE | 2020-03-24 11:03 | NUR ---
I received a call from Omid at [facility], he said they will deliver IV ATB to patient's home between 8-10pm Misty webster [facility] to visit patient tomorrow.
[2020-03-24] MEDS: OXYCODONE W/ ACETAMINOPHEN 5/325MG TABLET PO PRN (12:00)
--- NOTE | 2020-03-24 12:00 | NUR ---
RE: Percocet Medication was scanned by this RN. Computer shut off and documentation was not able to be saved. Medication manually documented.
[2020-03-24 12:53] VITALS: BP 119/79
--- NOTE | 2020-03-24 15:21 | NUR ---
D/C planning Received a follow up called from Paulette with [facility] [phone] advising me patient has a 20% co-pay of 15dlls per visit. Spoke to patient regarding home health co-pay and if there is someone at home who can assist with the IV abx. Per patient she can do the IV abx her self. Patient agrees to pay the 15dll co-pay every visit. Placed follow up called to Paulette with [facility] advising her patient agrees to pay the co-pay. Per Paulette with [facility] patient will be seen within 24hrs. Informed AUGUSTINA Solis. YAHIR Trevino with patient health plan was contact and will provide authorization to home health agency. Regarding social service consult for bed side commode. Faxed clinical information to [facility] and YAHIR Trevino with patient health plan. Per Best with [facility] they will deliver bedside commode to patient upon discharge day.
--- NOTE | 2020-03-24 15:57 | NUR ---
WOUND CARE NOTE: Wound care in for daily monitoring of wound vac functioning. Patient is resting in bed in Rm 208. Patient is awake, alert and oriented. Patient's L foot wound vac dressing is C/D/I and connected to Ulta vac, functioning well at 125 mmHg continuos. Patient has DC order today and her home wound vac and supplies at bedside. Switch patient's wound vac to home vac at ordered setting of 125 mmHg continuos. Good suction noted, no leak detected. Leave home vac charging at bedside while awaiting DC. Patient tolerated well.
--- NOTE | 2020-03-24 17:00 | NUR ---
Discharge Discharge education and paperwork provided to the patient per MD order. Patient verbalized understanding. Patient reports having a follow up appointment with Dr. Bonilla on 03/25/20. IV to the LFA removed with aseptic technique, catheter intact. Dressing applied. Patient tolerated well, no trauma to site. Midline to the RENETTA remains in place per Dr. Dickson's order for home IV antibiotics. Telemonitor removed and returned. Patient has DME wheelchair at bedside. Patient has personal wound vac in place. Patient reports having all personal belongings. Respirations even and unlabored, no distress noted. Patient's spouse is coming to the hospital to transport patient. Patient requesting her spouse assist her with her personal belongings and transferring to wheelchair.
--- NOTE | 2020-03-24 17:35 | NUR ---
Patient's spouse arrived to bedside Patient requesting to receive assistance from her spouse and not staff. Instructed patient to notify staff if assistance is needed. Patient verbalized understanding.
--- NOTE | 2020-03-24 18:30 | NUR ---
Patient transported to private vehicle via wheelchair accompanied by staff member and patient's spouse. Patient reports having all personal belongings. Respirations even and unlabored, no distress noted. Patient has personal wound vac in place per MD order. Patient has DME wheelchair.
== END 2020-03-24 18:26 | disposition home health service (06) | DRG 853 ==
LOC: EDBD 12:56 → ER 12:56 → TELE 12:57 → TELE-CENTR 03-17 16:58
PROVIDERS: ADMIT Internal Medicine; ATTEND Internal Medicine
PROC: 0Y6N0ZF Detachment at Left Foot, Partial 5th Ray, Open Approach (ICD-10-PCS; principal; 2020-03-18 17:17)
PROC: 4A023N7 Measurement of Cardiac Sampling and Pressure, Left Heart, Percutaneous Approach (ICD-10-PCS; 2020-03-23)
PROC: B2111ZZ Fluoroscopy of Multiple Coronary Arteries using Low Osmolar Contrast (ICD-10-PCS; 2020-03-23)
PROC: B2151ZZ Fluoroscopy of Left Heart using Low Osmolar Contrast (ICD-10-PCS; 2020-03-23)
DX: A41.9 Sepsis, unspecified organism (principal); A48.0 Gas gangrene; E11.10 Type 2 diabetes mellitus with ketoacidosis without coma; I49.01 Ventricular fibrillation; N17.0 Acute kidney failure with tubular necrosis; E43 Unspecified severe protein-calorie malnutrition; E11.52 Type 2 diabetes mellitus with diabetic peripheral angiopathy with gangrene; L03.116 Cellulitis of left lower limb; M86.8X7 Other osteomyelitis, ankle and foot; N39.0 Urinary tract infection, site not specified; I50.32 Chronic diastolic (congestive) heart failure; Z68.42 Body mass index [BMI] 45.0-49.9, adult; E11.51 Type 2 diabetes mellitus with diabetic peripheral angiopathy without gangrene; E11.621 Type 2 diabetes mellitus with foot ulcer; E11.69 Type 2 diabetes mellitus with other specified complication; E66.01 Morbid (severe) obesity due to excess calories; F40.240 Claustrophobia; I10 Essential (primary) hypertension; I49.3 Ventricular premature depolarization; L97.529 Non-pressure chronic ulcer of other part of left foot with unspecified severity; E83.39 Other disorders of phosphorus metabolism; E87.6 Hypokalemia; Z20.828 Contact with and (suspected) exposure to other viral communicable diseases; Z79.84 Long term (current) use of oral hypoglycemic drugs; Z80.0 Family history of malignant neoplasm of digestive organs; Z80.1 Family history of malignant neoplasm of trachea, bronchus and lung; Z80.3 Family history of malignant neoplasm of breast; Z80.41 Family history of malignant neoplasm of ovary; Z80.8 Family history of malignant neoplasm of other organs or systems; Z81.8 Family history of other mental and behavioral disorders; Z82.0 Family history of epilepsy and other diseases of the nervous system; Z82.3 Family history of stroke; Z82.49 Family history of ischemic heart disease and other diseases of the circulatory system; Z82.5 Family history of asthma and other chronic lower respiratory diseases; Z82.62 Family history of osteoporosis; Z83.3 Family history of diabetes mellitus
CPT/HCPCS: 36415; 36600; 71045; 73630; 73700; 78452; 80048; 80053; 80061; 80320; 81001; 82805; 82962; 83036; 83605; 83735; 83880; 84100; 84443; 84484; 85007; 85025; 85027; 85610; 85652; 85730; 86850; 86900; 86901; 87040; 87070; 87075; 87076; 87077; 87186; 87205; 88302; 90471; 90715; 93005; 93017; 93306; 93926; 96365; 96366; 96367; 96372; 96376; 97163; 99152; 99291; G0378; J0153; J0690; J0696; J1815; J2001; J2250; J2704; J3490; J7060

== ENCOUNTER → 2020-04-15 | Day surgery (SDC) | payer BC ==
[2020-04-12 10:44] LABS: Basophils # (auto) 0 10 ^3/uL (0-0.2); Basophils % (auto) 0.3 % (0.0-2.0); Eosinophils # (auto) 0.1 10 ^3/uL (0-0.8); Eosinophils % (auto) 2.1 % (0.0-7.0); Hematocrit 40.3 % (36.0-46.0); Hemoglobin 13.5 g/dL (12.2-16.2); Lymphocytes # (auto) 1.2 10 ^3/uL (0.4-5.4); Lymphocytes % (auto) 18.7 % (10.0-50.0); Mean Corpuscular Hemoglobin 31.1 pg (28.0-32.0); Mean Corpuscular Hgb Conc. 33.5 g/dL (32.0-36.0); Mean Corpuscular Volume 92.8 fL (80.0-100.0); Monocytes # (auto) 0.6 10 ^3/uL (0-1.3); Monocytes % (auto) 8.9 % (0.0-12.0); Neutrophils # (auto) 4.4 10 ^3/uL (1.6-8.6); Platelet Count (auto) 310 10^3/uL (140-450); Red Blood Cells 4.34 10^6/uL (4.0-5.20); Red Cell Distribution Width 12.3 % (11.8-14.3); White Blood Cell 6.3 10^3/uL (4.4-10.8)
[2020-04-12 10:59] LABS: INR 0.99 (0.9-1.15)
[2020-04-12 11:29] LABS: Albumin 2.9 g/dL (3.4-5.0)
[2020-04-12 11:33] LABS: Bilirubin, Total 0.4 mg/dL (0.2-1.0); Total Protein 8.1 g/dL (6.4-8.2)
[~2020-04-15] VITALS: Ht 182.9 cm; Wt 117.9 kg
[~2020-04-15] MED LIST: ACCU-CHEK COMFORT CURVE STRIP VI ONE; ASPI81CH43 PO; ATOR10TA52 PO; BUPIVACAINE 0.25% INJ 50ML VIAL ONE; CEFTRIAXONE SODIUM 2 GM in D5W 5% 50 ML IV ONE; GLYCOPYRROLATE 0.2 MG/ML 1ML VIAL ONE; HYDROmorphone HCL 2 MG/ML VL IV PRN; KETOROLAC TROMETH 30 MG/ML 1ML VIAL ONE; LIDOCAINE 1% (LOCAL ANESTH.) PF 5ml SDV ONE; LOSA25TA38 PO; MEPERIDINE HCL (25 MG/ML) 1ML VIAL IV ONE; MEPERIDINE HCL (25 MG/ML) 1ML VIAL ONE; MET25T PO; METF-372 PO; METOCLOPRAMIDE HCL 5MG/ml INJ 2ml VIAL ONE; MIDAZOLAM HCL 1MG/1ML-2 ML VIAL ONE; NALOXONE HCL 0.4 MG/ML VIAL IV PRN; NEOSTIGMINE 1 MG/ML INJ (10mg/10ML VIAL) ONE; ONDANSETRON HCL 4 MG/2 ML VIAL IV PRN; PROPOFOL 10 MG/ML 20 ML IV ONE; ROC2INJ10 IV; ROCURONIUM 10MG/ML 10ML VIAL IV ONE; SITA50TA PO; STERILE WATER 10 ML ONE; SUCCINYLCHOLINE CHLORIDE 20 MG/ML 10ML VIAL IV ONE; ceFAZolin 1GM/50ML 50 ML IV ONE; cefTRIAXone SOD 1,000 MG VL ONE; ePHEDrine SULFATE 50 MG/ML AMP ONE; fentaNYL CITRATE 100 MCG/2 ML VL ONE; hydrALAZINE HCL 20 MG/ML VL IV PRN
[2020-04-15 13:03] VITALS: BP 141/86
[2020-04-15 13:25] LABS: Hematocrit 38.8 % (36.0-46.0); Hemoglobin 12.7 g/dL (12.2-16.2)
--- NOTE | 2020-04-15 17:09 | NUR ---
Midline Placement: Midline to left upper extremity noted to be leaking and with difficulty flushing. Midline D/C'd with 10 cm catheter in tact. No warmth, redness, or swelling noted, pt denies pain to insertion site. Pressure dressing applied. Patient educated on need for new midline placement. All risks and benefits explained and all questions and concerns addresses prior to procedure. 18g/10cm midline inserted via right brachial vein using Ultrasound. Sterile technique utilized. Blood return obtained from lumen and flushed easily with NS using proper technique. Midline secured with saline lock; biodisc and occlusive dressing applied. Midline lot #[id number]
== END | disposition home or self-care (01) ==
LOC: SUR 06:12
PROVIDERS: ATTEND Podiatrist Foot & Ankle Surgery
DX: E11.621 Type 2 diabetes mellitus with foot ulcer (principal); I96 Gangrene, not elsewhere classified; Z98.890 Other specified postprocedural states; Z79.899 Other long term (current) drug therapy; Z20.828 Contact with and (suspected) exposure to other viral communicable diseases; K21.9 Gastro-esophageal reflux disease without esophagitis; I10 Essential (primary) hypertension; E78.00 Pure hypercholesterolemia, unspecified; E11.9 Type 2 diabetes mellitus without complications; Z79.82 Long term (current) use of aspirin; Z79.84 Long term (current) use of oral hypoglycemic drugs; E66.01 Morbid (severe) obesity due to excess calories
CPT/HCPCS: 27685; 28805; 36415; 80053; 82962; 85014; 85018; 85025; 85610; 85730; 88305; C1713; C1781; J0330; J0690; J0696; J1885; J2175; J2250; J2704; J2765; J3010; J3490; J7030; U0003

== ENCOUNTER → 2020-04-22 | Outpatient (CLI) | payer BC ==
[~2020-04-22] MED LIST changes: -ACCU-CHEK COMFORT CURVE STRIP VI ONE; -BUPIVACAINE 0.25% INJ 50ML VIAL ONE; -CEFTRIAXONE SODIUM 2 GM in D5W 5% 50 ML IV ONE; -GLYCOPYRROLATE 0.2 MG/ML 1ML VIAL ONE; -HYDROmorphone HCL 2 MG/ML VL IV PRN; -KETOROLAC TROMETH 30 MG/ML 1ML VIAL ONE; -LIDOCAINE 1% (LOCAL ANESTH.) PF 5ml SDV ONE; -MEPERIDINE HCL (25 MG/ML) 1ML VIAL IV ONE; -MEPERIDINE HCL (25 MG/ML) 1ML VIAL ONE; -METOCLOPRAMIDE HCL 5MG/ml INJ 2ml VIAL ONE; -MIDAZOLAM HCL 1MG/1ML-2 ML VIAL ONE; -NALOXONE HCL 0.4 MG/ML VIAL IV PRN; -NEOSTIGMINE 1 MG/ML INJ (10mg/10ML VIAL) ONE; -ONDANSETRON HCL 4 MG/2 ML VIAL IV PRN; -PROPOFOL 10 MG/ML 20 ML IV ONE; -ROCURONIUM 10MG/ML 10ML VIAL IV ONE; -STERILE WATER 10 ML ONE; -SUCCINYLCHOLINE CHLORIDE 20 MG/ML 10ML VIAL IV ONE; -ceFAZolin 1GM/50ML 50 ML IV ONE; -cefTRIAXone SOD 1,000 MG VL ONE; -ePHEDrine SULFATE 50 MG/ML AMP ONE; -fentaNYL CITRATE 100 MCG/2 ML VL ONE; -hydrALAZINE HCL 20 MG/ML VL IV PRN
== END | disposition home or self-care (01) ==
LOC: LAB 15:05
PROVIDERS: ATTEND Internal Medicine
DX: E11.9 Type 2 diabetes mellitus without complications (principal)
CPT/HCPCS: 36415; 82043; 85652

== ENCOUNTER → 2020-06-16 | Outpatient (CLI) | payer BC | END | disposition home or self-care (01) | LOC: LAB 16:35 | PROVIDERS: ATTEND Internal Medicine | DX: Z12.11 Encounter for screening for malignant neoplasm of colon (principal); E11.9 Type 2 diabetes mellitus without complications | CPT/HCPCS: 36415; 83036 ==

== ENCOUNTER → 2020-10-28 | Outpatient (CLI) | payer BC | END | disposition home or self-care (01) | LOC: LAB 11:54 | PROVIDERS: ATTEND Internal Medicine | DX: Z12.11 Encounter for screening for malignant neoplasm of colon (principal); E11.9 Type 2 diabetes mellitus without complications | CPT/HCPCS: 36415; 83036 ==

== ENCOUNTER → 2021-01-12 | Outpatient (CLI) | payer BC, OTHER | END | disposition home or self-care (01) | LOC: XY 09:07 | PROVIDERS: ATTEND Podiatrist | DX: I70.202 Unspecified atherosclerosis of native arteries of extremities, left leg (principal); I77.9 Disorder of arteries and arterioles, unspecified | CPT/HCPCS: 93925 ==

== ENCOUNTER → 2021-12-20 | Outpatient (CLI) | payer OTHER ==
[2021-12-20 07:58] LABS: Potassium 5.2 mmol/L (3.5-5.1)
[2021-12-20 08:01] LABS: BUN/Creatinine Ratio 16.2
== END | disposition home or self-care (01) ==
LOC: LAB 06:38
PROVIDERS: ATTEND Internal Medicine
DX: E11.9 Type 2 diabetes mellitus without complications (principal)
CPT/HCPCS: 36415; 80048; 83036

== ENCOUNTER → 2021-12-22 | Outpatient (CLI) | payer OTHER ==
[2021-12-22 09:39] LABS: BUN/Creatinine Ratio 22.9
== END | disposition home or self-care (01) ==
LOC: LAB 08:26
PROVIDERS: ATTEND Internal Medicine
DX: E11.9 Type 2 diabetes mellitus without complications (principal)
CPT/HCPCS: 36415; 80048

== ENCOUNTER → 2022-01-19 | Outpatient (CLI) | payer OTHER ==
[2022-01-19 07:49] LABS: Cholesterol 146 mg/dL (< 200); HDL Cholesterol 82 mg/dL (40-59); LDL Cholesterol 47 mg/dL (< 100); Triglycerides 95 mg/dL (< 150)
== END | disposition home or self-care (01) ==
LOC: LAB 06:40
PROVIDERS: ATTEND Internal Medicine
DX: E11.9 Type 2 diabetes mellitus without complications (principal); E55.9 Vitamin D deficiency, unspecified; I10 Essential (primary) hypertension
CPT/HCPCS: 36415; 80061; 82043; 82306; 83880; 84443

== ENCOUNTER 2022-06-13 17:21 | Emergency (ER) | payer OTHER ==
[~2022-06-13] VITALS: Ht 182.9 cm; Wt 131.0 kg
[2022-06-13] MEDS ORDERED: KETOROLAC TROMETH 30 MG/ML 1ML VIAL IM ONE (20:15)
[2022-06-13] MEDS ORDERED: HYDROcodone-ACET 10/325MG TAB PO ONE (20:15)
[2022-06-13] MEDS ORDERED: HYDR1TAB97 PO (20:59)
[2022-06-13 22:46] VITALS: BP 174/98
== END 2022-06-13 22:49 | disposition home or self-care (01) ==
LOC: ER 17:21
DX: M17.12 Unilateral primary osteoarthritis, left knee (principal); E11.9 Type 2 diabetes mellitus without complications; I10 Essential (primary) hypertension
CPT/HCPCS: 73562; 96372; 99283; J1885

== ENCOUNTER 2023-08-06 09:47 | Inpatient (IN) | payer OTHER ==
[~2023-08-06] VITALS: Ht 182.9 cm; Wt 68.0 kg
[~2023-08-06 09:47] MED LIST changes: +ALPR0.25 PO; +DAPA1TAB4 PO; +DOXY1CAP57 PO; +HYDR1TAB97 PO; +HYDR25TA5 PO; +INSLANTI SC; +LOSA100T58 PO; -LOSA25TA38 PO; -ROC2INJ10 IV; -SITA50TA PO
[2023-08-06 11:05] LABS: Basophils # (auto) 0 10 ^3/uL (0-0.2); Basophils % (auto) 0.2 % (0.0-2.0); Eosinophils # (auto) 0.1 10 ^3/uL (0-0.8); Eosinophils % (auto) 1.1 % (0.0-7.0); Hematocrit 39.9 % (36.0-46.0); Hemoglobin 13.3 g/dL (12.2-16.2); Lymphocytes % (auto) 10.1 % (10.0-50.0); Mean Corpuscular Hemoglobin 32.8 pg (28.0-32.0); Mean Corpuscular Hgb Conc. 33.4 g/dL (32.0-36.0); Mean Corpuscular Volume 98.2 fL (80.0-100.0); Monocytes % (auto) 9.5 % (0.0-12.0); Neutrophils # (auto) 7.9 10 ^3/uL (1.6-8.6); Neutrophils % (auto) 79.1 % (37.0-80.0); Nucleated Red Blood Cells % 0.1 %; Red Blood Cells 4.06 10^6/uL (4.0-5.20)
[2023-08-06 11:25] LABS: Alanine Aminotransferase 14 U/L (7-40); Albumin 4.7 g/dL (3.2-4.8); Alkaline Phosphatase 90 U/L (46-116); Anion Gap 6 (5-15); Aspartate Aminotransferase 19 U/L (13-40); BUN/Creatinine Ratio 15.4 (10.0-20.0); Bilirubin, Total 0.9 mg/dL (0.2-1.0); Blood Urea Nitrogen 16 mg/dL (9-23); Calcium 9.6 mg/dL (8.5-10.1); Carbon Dioxide 26 mmol/L (20-30); Chloride 102 mmol/L (98-107); Glucose 147 mg/dL (74-106); Potassium 4.7 mmol/L (3.5-5.1); Sodium 134 mmol/L (136-145); Total Protein 7.9 g/dL (5.7-8.2)
[2023-08-06 11:33] LABS: CRP High Sensitivity 7.76 mg/dL (<1.0)
[2023-08-06] MEDS ORDERED: VANCOMYCIN PER PHARMACY 0 MG IV STA (11:39)
[2023-08-06 12:25] LABS: Erythrocyte Sedimentation Rate 61 mm/hr (0-20)
[2023-08-06] MEDS ORDERED: NITROGLYCERIN 0.4 MG SL TAB SL PRN (13:30)
[2023-08-06] MEDS ORDERED: ACETAMINOPHEN 325 MG TAB PO PRN (13:30)
[2023-08-06] MEDS ORDERED: MORPHINE SULFATE INJ 2 MG/ml SYRG IV PRN (13:30)
[2023-08-06] MEDS ORDERED: VANCOMYCIN PER PHARMACY 0 MG IV SCH (13:30)
[2023-08-06] MEDS ORDERED: DEXTROSE (50%) 50ML SYRG IV PRN (13:45)
[2023-08-06] MEDS: VANCOMYCIN 1GM/250ML 250 ML IV SCH ×3 (13:50→16:09)
[2023-08-06] MEDS: SODIUM CHLORIDE 0.9% 1,000 ML IV SCH (16:04)
[2023-08-06] MEDS ORDERED: CHOL20007 PO (16:56)
[2023-08-06] MEDS ORDERED: ESCI10TA PO (16:56)
[2023-08-06 17:00] VITALS: BP 159/79; PULSE 76; RESP 19; TEMP 98.2; O2SAT 97
[2023-08-06] MEDS: hydrALAZINE HCL 20 MG/ML VL IV PRN (17:28)
[2023-08-06] MEDS: ACCU-CHEK COMFORT CURVE STRIP VI SCH ×2 (17:28→21:47)
[2023-08-06] MEDS: InsuLIN REG 1unit/0.01ml Soln (100units/ml) SC SCH ×2 (17:31→21:54)
[2023-08-06 20:00] VITALS: PULSE 94
[2023-08-06] MEDS: ATORVASTATIN 20 MG TAB PO SCH (21:42)
[2023-08-06] MEDS: METOPROLOL TARTRATE 25 MG TAB PO SCH (21:42)
[2023-08-06] MEDS: DAKINS QUARTER STR 0.125% (NaHypochlorite) 473 ML TOPICAL SOL TOP SCH (21:47)
[2023-08-06] MEDS: ASCORBIC ACID 500 MG TAB PO SCH (21:47)
[2023-08-06] MEDS: TEMAZEPAM 15 MG CAP PO PRN (21:55)
[2023-08-06 22:00] VITALS: BP 133/78; PULSE 96; RESP 18; TEMP 98; O2SAT 96
[2023-08-07] MEDS: SODIUM CHLORIDE 0.9% 1,000 ML IV SCH (04:58)
[2023-08-07] MEDS: VANCOMYCIN 1GM/250ML 250 ML IV SCH ×2 (04:58→18:22)
[2023-08-07 05:00] VITALS: BP 127/62; PULSE 77; RESP 18; TEMP 98.1; O2SAT 95
[2023-08-07] MEDS: InsuLIN REG 1unit/0.01ml Soln (100units/ml) SC SCH ×4 (06:27→22:25)
[2023-08-07] MEDS: ACCU-CHEK COMFORT CURVE STRIP VI SCH ×4 (06:27→22:22)
[2023-08-07 06:49] LABS: Basophils # (auto) 0 10 ^3/uL (0-0.2); Basophils % (auto) 0.2 % (0.0-2.0); Eosinophils # (auto) 0.1 10 ^3/uL (0-0.8); Eosinophils % (auto) 1.7 % (0.0-7.0); Hematocrit 35.1 % (36.0-46.0); Hemoglobin 11.9 g/dL (12.2-16.2); Lymphocytes % (auto) 15.9 % (10.0-50.0); Mean Corpuscular Hgb Conc. 33.9 g/dL (32.0-36.0); Mean Corpuscular Volume 97.6 fL (80.0-100.0); Monocytes # (auto) 0.8 10 ^3/uL (0-1.3); Monocytes % (auto) 12.4 % (0.0-12.0); Neutrophils # (auto) 4.6 10 ^3/uL (1.6-8.6); Neutrophils % (auto) 69.8 % (37.0-80.0); Red Blood Cells 3.59 10^6/uL (4.0-5.20); White Blood Cell 6.6 10^3/uL (4.4-10.8)
[2023-08-07 07:01] LABS: Alanine Aminotransferase 10 U/L (7-40); Albumin 3.8 g/dL (3.2-4.8); Alkaline Phosphatase 76 U/L (46-116); Anion Gap 6 (5-15); Aspartate Aminotransferase 16 U/L (13-40); BUN/Creatinine Ratio 17.2 (10.0-20.0); Blood Urea Nitrogen 17 mg/dL (9-23); Calcium 8.4 mg/dL (8.7-10.4); Carbon Dioxide 24 mmol/L (20-30); Chloride 105 mmol/L (98-107); Glucose 163 mg/dL (74-106); Potassium 4.2 mmol/L (3.5-5.1); Sodium 135 mmol/L (136-145)
[2023-08-07 07:02] LABS: Bilirubin, Total 0.6 mg/dL (0.2-1.0); Total Protein 6.4 g/dL (5.7-8.2)
[2023-08-07 07:30] VITALS: PULSE 78
[2023-08-07 09:00] VITALS: BP 151/80; PULSE 78; RESP 19; TEMP 98.4; O2SAT 95
[2023-08-07] MEDS: ASPirin 81 mg TAB PO SCH (09:39)
[2023-08-07] MEDS: ENOXAPARIN SOD 40 MG/0.4 ML SYRINGE SC SCH (09:39)
[2023-08-07] MEDS: ZINC SULFATE 220mg CAP or TAB PO SCH (09:39)
[2023-08-07] MEDS: METOPROLOL TARTRATE 25 MG TAB PO SCH ×2 (09:40→21:42)
[2023-08-07] MEDS: hydroCHLOROthiazide 25 MG TAB PO SCH (09:40)
[2023-08-07] MEDS: ASCORBIC ACID 500 MG TAB PO SCH ×2 (09:40→21:41)
[2023-08-07] MEDS: MULTIPLE VITAMIN TAB PO SCH (09:40)
[2023-08-07] MEDS: LOSARTAN POTASSIUM 50 MG TAB PO SCH (09:41)
[2023-08-07] MEDS: DAKINS QUARTER STR 0.125% (NaHypochlorite) 473 ML TOPICAL SOL TOP SCH ×2 (09:41→22:23)
[2023-08-07] MEDS ORDERED: CITALOPRAM HYDROBR 20 MG TAB PO ONE (11:00)
[2023-08-07 12:39] LABS: INR 1.03 (0.9-1.15); Partial Thromboplastin Time 27.8 SEC (24.5-34.5); Prothrombin Time 10.8 sec (9.3-11.8)
[2023-08-07 13:00] VITALS: BP 145/82; PULSE 76; RESP 18; TEMP 98.4; O2SAT 95
[2023-08-07] MEDS: ALPRAZolam 0.25 MG TAB PO PRN (14:05)
[2023-08-07] MEDS: CEFEPIME 1GM/ 50ML 50 ML IV SCH ×2 (14:26→21:43)
[2023-08-07 16:59] VITALS: BP 142/66; PULSE 80; RESP 17; TEMP 98.1; O2SAT 94
[2023-08-07] MEDS: ATORVASTATIN 20 MG TAB PO SCH (21:41)
[2023-08-07] MEDS: TEMAZEPAM 15 MG CAP PO PRN (21:41)
[2023-08-07 22:00] VITALS: BP 151/77; PULSE 78; RESP 18; TEMP 98.1; O2SAT 96
[2023-08-07] MEDS ORDERED: INSULIN LANTUS (GLARGINE) 1 /0.01ml (100units/ml) SC SCH (22:00)
[2023-08-08 05:00] VITALS: BP 146/77; PULSE 67; RESP 16; TEMP 97.9; O2SAT 95
[2023-08-08] MEDS: VANCOMYCIN 1GM/250ML 250 ML IV SCH ×2 (05:11→18:05)
[2023-08-08] MEDS: CEFEPIME 1GM/ 50ML 50 ML IV SCH ×3 (06:26→21:20)
[2023-08-08] MEDS: ACCU-CHEK COMFORT CURVE STRIP VI SCH ×4 (06:45→22:20)
[2023-08-08] MEDS: InsuLIN REG 1unit/0.01ml Soln (100units/ml) SC SCH ×4 (06:49→22:27)
[2023-08-08 09:00] VITALS: BP 131/46; PULSE 72; RESP 16; TEMP 97.7; O2SAT 93
[2023-08-08] MEDS: ASCORBIC ACID 500 MG TAB PO SCH ×2 (09:11→21:21)
[2023-08-08] MEDS: ENOXAPARIN SOD 40 MG/0.4 ML SYRINGE SC SCH (09:11)
[2023-08-08] MEDS: ZINC SULFATE 220mg CAP or TAB PO SCH (09:11)
[2023-08-08] MEDS: MULTIPLE VITAMIN TAB PO SCH (09:11)
[2023-08-08] MEDS: CITALOPRAM HYDROBR 20 MG TAB PO SCH (09:11)
[2023-08-08] MEDS: ASPirin 81 mg TAB PO SCH (09:11)
[2023-08-08] MEDS: hydroCHLOROthiazide 25 MG TAB PO SCH (09:12)
[2023-08-08] MEDS: LOSARTAN POTASSIUM 50 MG TAB PO SCH (09:12)
[2023-08-08] MEDS: METOPROLOL TARTRATE 25 MG TAB PO SCH ×2 (09:13→21:21)
[2023-08-08] MEDS: DAKINS QUARTER STR 0.125% (NaHypochlorite) 473 ML TOPICAL SOL TOP SCH ×2 (09:13→22:20)
[2023-08-08] MEDS: ALPRAZolam 0.25 MG TAB PO PRN (12:28)
[2023-08-08 13:00] VITALS: BP 139/64; PULSE 71; RESP 16; TEMP 97.4; O2SAT 96
[2023-08-08 17:00] VITALS: BP 151/59; PULSE 60; RESP 18; TEMP 98.2; O2SAT 93
[2023-08-08] MEDS: ATORVASTATIN 20 MG TAB PO SCH (21:21)
[2023-08-08] MEDS: TEMAZEPAM 15 MG CAP PO PRN (21:21)
[2023-08-08 22:00] VITALS: BP 154/79; PULSE 70; RESP 20; TEMP 98.1; O2SAT 95
[2023-08-08] MEDS: INSULIN LANTUS (GLARGINE) 1 /0.01ml (100units/ml) SC SCH (22:28)
[2023-08-09 04:50] VITALS: BP 120/60; PULSE 65; RESP 20; TEMP 98.5; O2SAT 95
[2023-08-09] MEDS: VANCOMYCIN 1GM/250ML 250 ML IV SCH (04:58)
[2023-08-09] MEDS: CEFEPIME 1GM/ 50ML 50 ML IV SCH (06:16)
[2023-08-09] MEDS: InsuLIN REG 1unit/0.01ml Soln (100units/ml) SC SCH ×4 (06:34→23:19)
[2023-08-09] MEDS: ACCU-CHEK COMFORT CURVE STRIP VI SCH ×4 (06:35→22:28)
[2023-08-09 08:00] VITALS: RESP 18
[2023-08-09 09:00] VITALS: BP 149/74; PULSE 69; RESP 18; TEMP 97.5; O2SAT 94
[2023-08-09] MEDS: ENOXAPARIN SOD 40 MG/0.4 ML SYRINGE SC SCH (10:00)
[2023-08-09] MEDS: MULTIPLE VITAMIN TAB PO SCH (10:00)
[2023-08-09] MEDS: DAKINS QUARTER STR 0.125% (NaHypochlorite) 473 ML TOPICAL SOL TOP SCH ×2 (10:00→23:20)
[2023-08-09] MEDS: ALPRAZolam 0.25 MG TAB PO PRN (10:21)
[2023-08-09] MEDS: LOSARTAN POTASSIUM 50 MG TAB PO SCH (10:22)
[2023-08-09] MEDS: METOPROLOL TARTRATE 25 MG TAB PO SCH ×2 (10:23→23:09)
[2023-08-09] MEDS: hydroCHLOROthiazide 25 MG TAB PO SCH (10:24)
[2023-08-09] MEDS ORDERED: ONDANSETRON HCL 4 MG/2 ML VIAL IV PRN (11:30)
[2023-08-09] MEDS ORDERED: HYDROmorphone HCL 2 MG/ML VL/or syr IV PRN (11:30)
[2023-08-09] MEDS ORDERED: MEPERIDINE HCL (25 MG/ML) 1ML VIAL IV PRN (11:30)
[2023-08-09] MEDS ORDERED: LIDOCAINE 1% (LOCAL ANESTH.) PF 5ml SDV ONE (11:43)
[2023-08-09] MEDS ORDERED: PROPOFOL 10 MG/ML 20 ML IV ONE (11:52)
[2023-08-09] MEDS ORDERED: fentaNYL CITRATE 100 MCG/2 ML VL ONE (11:52)
[2023-08-09] MEDS ORDERED: DexAMETHasone SOD PHOS 10MG/1ML VIAL INJ ONE (12:18)
[2023-08-09] MEDS ORDERED: ONDANSETRON HCL 4 MG/2 ML VIAL ONE (12:18)
[2023-08-09 12:38] VITALS: O2SAT 98
[2023-08-09] MEDS ORDERED: LIDOCAINE 1% (LOCAL ANESTH.) PF 5ml SDV ID ONE (16:15)
[2023-08-09 17:00] VITALS: BP 134/72; PULSE 82; RESP 18; TEMP 97.9; O2SAT 92
[2023-08-09] MEDS: ASCORBIC ACID 500 MG TAB PO SCH ×2 (17:08→23:04)
[2023-08-09] MEDS: ZINC SULFATE 220mg CAP or TAB PO SCH (17:08)
[2023-08-09] MEDS: ASPirin 81 mg TAB PO SCH (17:08)
[2023-08-09] MEDS: CITALOPRAM HYDROBR 20 MG TAB PO SCH (17:09)
[2023-08-09] MEDS: NAFCILLIN SOD 2GM 2 GM in SODIUM CHL 0.9% 100 ML IV SCH ×3 (17:09→23:00)
[2023-08-09] MEDS ORDERED: MORPHINE SULFATE INJ 2 MG/ml SYRG IV PRN (17:30)
[2023-08-09] MEDS: HYDROcodone-ACET 5/325MG TAB PO PRN (20:26)
[2023-08-09 22:00] VITALS: BP 161/79; PULSE 82; RESP 16; TEMP 98; O2SAT 91
[2023-08-09] MEDS: ATORVASTATIN 20 MG TAB PO SCH (23:03)
[2023-08-09] MEDS: SODIUM CHLOR 0.9% PF (SALINE LOCK) 10ML VIAL/SYR IV SCH (23:13)
[2023-08-09] MEDS: INSULIN LANTUS (GLARGINE) 1 /0.01ml (100units/ml) SC SCH (23:19)
[2023-08-10] VITALS (8 sets, daily range): BP systolic 93–162; BP diastolic 66–73; PULSE 66–81; RESP 16–20; TEMP 97.7–98; O2SAT 92–98
[2023-08-10] MEDS: NAFCILLIN SOD 2GM 2 GM in SODIUM CHL 0.9% 100 ML IV SCH ×6 (02:36→22:08)
[2023-08-10] MEDS: InsuLIN REG 1unit/0.01ml Soln (100units/ml) SC SCH ×4 (06:31→22:10)
[2023-08-10] MEDS: ACCU-CHEK COMFORT CURVE STRIP VI SCH ×4 (06:39→22:08)
[2023-08-10] MEDS: DAKINS QUARTER STR 0.125% (NaHypochlorite) 473 ML TOPICAL SOL TOP SCH ×2 (09:54→15:11)
[2023-08-10] MEDS: ASPirin 81 mg TAB PO SCH (10:05)
[2023-08-10] MEDS: ASCORBIC ACID 500 MG TAB PO SCH ×2 (10:05→22:08)
[2023-08-10] MEDS: MULTIPLE VITAMIN TAB PO SCH (10:05)
[2023-08-10] MEDS: ZINC SULFATE 220mg CAP or TAB PO SCH (10:05)
[2023-08-10] MEDS: hydroCHLOROthiazide 25 MG TAB PO SCH (10:08)
[2023-08-10] MEDS: LOSARTAN POTASSIUM 50 MG TAB PO SCH (10:09)
[2023-08-10] MEDS: CITALOPRAM HYDROBR 20 MG TAB PO SCH (10:09)
[2023-08-10] MEDS: METOPROLOL TARTRATE 25 MG TAB PO SCH ×2 (10:10→21:57)
[2023-08-10] MEDS: ENOXAPARIN SOD 40 MG/0.4 ML SYRINGE SC SCH (10:12)
[2023-08-10] MEDS: SODIUM CHLOR 0.9% PF (SALINE LOCK) 10ML VIAL/SYR IV SCH ×2 (11:59→21:58)
[2023-08-10] MEDS ORDERED: INSULIN LANTUS (GLARGINE) 1 /0.01ml (100units/ml) SC ONE (12:15)
[2023-08-10] MEDS: HYDROcodone-ACET 5/325MG TAB PO PRN ×2 (12:27→17:39)
[2023-08-10] MEDS: TEMAZEPAM 15 MG CAP PO PRN (21:56)
[2023-08-10] MEDS: ATORVASTATIN 20 MG TAB PO SCH (21:58)
[2023-08-10] MEDS: INSULIN LANTUS (GLARGINE) 1 /0.01ml (100units/ml) SC SCH (22:09)
[2023-08-11] MEDS: NAFCILLIN SOD 2GM 2 GM in SODIUM CHL 0.9% 100 ML IV SCH ×6 (03:04→22:06)
[2023-08-11 05:00] VITALS: BP 118/46; PULSE 70; RESP 17; TEMP 97.7; O2SAT 95
[2023-08-11 05:48] LABS: Basophils # (auto) 0 10 ^3/uL (0-0.2); Basophils % (auto) 0.4 % (0.0-2.0); Eosinophils # (auto) 0.1 10 ^3/uL (0-0.8); Eosinophils % (auto) 1.5 % (0.0-7.0); Hemoglobin 11.2 g/dL (12.2-16.2); Lymphocytes # (auto) 1.9 10 ^3/uL (0.4-5.4); Lymphocytes % (auto) 28.9 % (10.0-50.0); Mean Corpuscular Hemoglobin 32.7 pg (28.0-32.0); Monocytes # (auto) 0.7 10 ^3/uL (0-1.3); Monocytes % (auto) 10.2 % (0.0-12.0); Neutrophils # (auto) 3.9 10 ^3/uL (1.6-8.6); Red Blood Cells 3.43 10^6/uL (4.0-5.20); Red Cell Distribution Width 12.8 % (11.8-14.3); White Blood Cell 6.7 10^3/uL (4.4-10.8)
[2023-08-11] MEDS: HYDROcodone-ACET 5/325MG TAB PO PRN ×2 (05:53→17:48)
[2023-08-11] MEDS: InsuLIN REG 1unit/0.01ml Soln (100units/ml) SC SCH ×4 (05:59→22:05)
[2023-08-11] MEDS: ACCU-CHEK COMFORT CURVE STRIP VI SCH ×4 (05:59→22:04)
[2023-08-11 06:08] LABS: Anion Gap 9 (5-15); Carbon Dioxide 21 mmol/L (20-30); Chloride 105 mmol/L (98-107); Potassium 4.1 mmol/L (3.5-5.1); Sodium 135 mmol/L (136-145)
[2023-08-11 06:09] LABS: Calcium 8.1 mg/dL (8.7-10.4)
[2023-08-11 06:14] LABS: BUN/Creatinine Ratio 25.2 (10.0-20.0); Blood Urea Nitrogen 36 mg/dL (9-23); Glucose 234 mg/dL (74-106)
[2023-08-11 08:56] VITALS: BP 158/83; PULSE 67; RESP 16; TEMP 97.6; O2SAT 94
[2023-08-11] MEDS: ASPirin 81 mg TAB PO SCH (10:40)
[2023-08-11] MEDS: LOSARTAN POTASSIUM 50 MG TAB PO SCH (10:40)
[2023-08-11] MEDS: MULTIPLE VITAMIN TAB PO SCH (10:41)
[2023-08-11] MEDS: ASCORBIC ACID 500 MG TAB PO SCH ×2 (10:41→21:50)
[2023-08-11] MEDS: METOPROLOL TARTRATE 25 MG TAB PO SCH ×2 (10:41→21:50)
[2023-08-11] MEDS: ENOXAPARIN SOD 40 MG/0.4 ML SYRINGE SC SCH (10:42)
[2023-08-11] MEDS: CITALOPRAM HYDROBR 20 MG TAB PO SCH (10:42)
[2023-08-11] MEDS: SODIUM CHLOR 0.9% PF (SALINE LOCK) 10ML VIAL/SYR IV SCH ×2 (10:43→21:54)
[2023-08-11] MEDS: ZINC SULFATE 220mg CAP or TAB PO SCH (10:43)
[2023-08-11] MEDS: hydroCHLOROthiazide 25 MG TAB PO SCH (10:43)
[2023-08-11] MEDS: SODIUM CHLORIDE 0.9% 1,000 ML IV SCH ×2 (10:44→19:30)
[2023-08-11] MEDS: INSULIN LANTUS (GLARGINE) 1 /0.01ml (100units/ml) SC SCH ×2 (11:02→22:05)
[2023-08-11 12:13] VITALS: BP 156/78; PULSE 64; RESP 18; TEMP 97.8; O2SAT 96
[2023-08-11 17:28] VITALS: BP 162/73; PULSE 67; RESP 18; TEMP 97.6; O2SAT 95
[2023-08-11] MEDS: hydrALAZINE HCL 20 MG/ML VL IV PRN (17:49)
[2023-08-11] MEDS: DAKINS QUARTER STR 0.125% (NaHypochlorite) 473 ML TOPICAL SOL TOP SCH ×2 (17:50→22:04)
[2023-08-11] MEDS: ATORVASTATIN 20 MG TAB PO SCH (21:51)
[2023-08-11 22:00] VITALS: BP 129/64; PULSE 71; RESP 17; TEMP 98.1; O2SAT 93
[2023-08-11] MEDS: TEMAZEPAM 15 MG CAP PO PRN (22:01)
[2023-08-12] MEDS: NAFCILLIN SOD 2GM 2 GM in SODIUM CHL 0.9% 100 ML IV SCH ×6 (02:03→21:50)
[2023-08-12 05:00] VITALS: BP 98/40; PULSE 65; RESP 16; TEMP 97.7; O2SAT 100
[2023-08-12] MEDS: SODIUM CHLORIDE 0.9% 1,000 ML IV SCH ×2 (05:30→15:30)
[2023-08-12] MEDS: ACCU-CHEK COMFORT CURVE STRIP VI SCH ×4 (06:11→22:13)
[2023-08-12] MEDS: InsuLIN REG 1unit/0.01ml Soln (100units/ml) SC SCH ×4 (06:11→22:14)
[2023-08-12 07:03] LABS: Anion Gap 7 (5-15); Calcium 8.1 mg/dL (8.7-10.4); Carbon Dioxide 24 mmol/L (20-30); Chloride 107 mmol/L (98-107); Sodium 138 mmol/L (136-145)
[2023-08-12 07:09] LABS: BUN/Creatinine Ratio 27.1 (10.0-20.0); Blood Urea Nitrogen 32 mg/dL (9-23); Glucose 110 mg/dL (74-106)
[2023-08-12 09:00] VITALS: BP 133/55; PULSE 72; RESP 18; TEMP 97.5; O2SAT 94
[2023-08-12] MEDS: SODIUM CHLOR 0.9% PF (SALINE LOCK) 10ML VIAL/SYR IV SCH ×2 (10:01→22:13)
[2023-08-12] MEDS: ENOXAPARIN SOD 40 MG/0.4 ML SYRINGE SC SCH (10:01)
[2023-08-12] MEDS: ALPRAZolam 0.25 MG TAB PO PRN (10:03)
[2023-08-12] MEDS: ASPirin 81 mg TAB PO SCH (10:03)
[2023-08-12] MEDS: ASCORBIC ACID 500 MG TAB PO SCH ×2 (10:03→21:51)
[2023-08-12] MEDS: ZINC SULFATE 220mg CAP or TAB PO SCH (10:03)
[2023-08-12] MEDS: CITALOPRAM HYDROBR 20 MG TAB PO SCH (10:04)
[2023-08-12] MEDS: MULTIPLE VITAMIN TAB PO SCH (10:05)
[2023-08-12] MEDS: METOPROLOL TARTRATE 25 MG TAB PO SCH ×2 (10:06→21:51)
[2023-08-12] MEDS: HYDROcodone-ACET 5/325MG TAB PO PRN ×2 (10:06→20:52)
[2023-08-12] MEDS: LOSARTAN POTASSIUM 50 MG TAB PO SCH (10:07)
[2023-08-12] MEDS: hydroCHLOROthiazide 25 MG TAB PO SCH (10:08)
[2023-08-12] MEDS: INSULIN LANTUS (GLARGINE) 1 /0.01ml (100units/ml) SC SCH ×2 (10:31→22:15)
[2023-08-12] MEDS: DAKINS QUARTER STR 0.125% (NaHypochlorite) 473 ML TOPICAL SOL TOP SCH ×2 (12:47→21:59)
[2023-08-12 13:00] VITALS: BP 146/65; PULSE 65; RESP 18; TEMP 97.9; O2SAT 96
[2023-08-12 17:00] VITALS: BP 139/79; PULSE 75; RESP 18; TEMP 98; O2SAT 95
[2023-08-12] MEDS: TEMAZEPAM 15 MG CAP PO PRN (21:51)
[2023-08-12] MEDS: ATORVASTATIN 20 MG TAB PO SCH (21:51)
[2023-08-12] MEDS: hydrALAZINE HCL 20 MG/ML VL IV PRN (23:44)
[2023-08-13] MEDS: SODIUM CHLORIDE 0.9% 1,000 ML IV SCH ×2 (00:58→10:45)
[2023-08-13] MEDS: NAFCILLIN SOD 2GM 2 GM in SODIUM CHL 0.9% 100 ML IV SCH ×5 (01:58→18:00)
[2023-08-13 02:06] VITALS: BP 158/75; PULSE 74; RESP 18; TEMP 97.4; O2SAT 94
[2023-08-13 04:28] VITALS: BP 117/53; PULSE 72; RESP 16; TEMP 97.7; O2SAT 97
[2023-08-13] MEDS: ACCU-CHEK COMFORT CURVE STRIP VI SCH ×3 (06:27→17:00)
[2023-08-13] MEDS: InsuLIN REG 1unit/0.01ml Soln (100units/ml) SC SCH ×3 (06:28→17:00)
[2023-08-13 08:51] VITALS: BP 124/46; PULSE 78; RESP 14; TEMP 98.1; O2SAT 95
[2023-08-13] MEDS: MULTIPLE VITAMIN TAB PO SCH (10:00)
[2023-08-13] MEDS: ASCORBIC ACID 500 MG TAB PO SCH (10:30)
[2023-08-13] MEDS: ASPirin 81 mg TAB PO SCH (10:30)
[2023-08-13] MEDS: ZINC SULFATE 220mg CAP or TAB PO SCH (10:30)
[2023-08-13] MEDS: CITALOPRAM HYDROBR 20 MG TAB PO SCH (10:30)
[2023-08-13] MEDS: LOSARTAN POTASSIUM 50 MG TAB PO SCH (10:31)
[2023-08-13] MEDS: ENOXAPARIN SOD 40 MG/0.4 ML SYRINGE SC SCH (10:32)
[2023-08-13] MEDS: SODIUM CHLOR 0.9% PF (SALINE LOCK) 10ML VIAL/SYR IV SCH (10:32)
[2023-08-13] MEDS: DAKINS QUARTER STR 0.125% (NaHypochlorite) 473 ML TOPICAL SOL TOP SCH (10:33)
[2023-08-13] MEDS: hydroCHLOROthiazide 25 MG TAB PO SCH (10:33)
[2023-08-13] MEDS: METOPROLOL TARTRATE 25 MG TAB PO SCH (10:34)
[2023-08-13] MEDS: INSULIN LANTUS (GLARGINE) 1 /0.01ml (100units/ml) SC SCH (10:45)
[2023-08-13] MEDS ORDERED: HYDR-4902 PO (11:06)
[2023-08-13] MEDS: ALPRAZolam 0.25 MG TAB PO PRN (11:40)
[2023-08-13 13:00] VITALS: BP 152/81; PULSE 70; RESP 16; TEMP 98.1; O2SAT 95
[2023-08-13] MEDS: HYDROcodone-ACET 5/325MG TAB PO PRN (15:48)
[2023-08-13 17:00] VITALS: BP 163/73; PULSE 77; RESP 14; TEMP 96.9; O2SAT 99
[2023-08-13 17:18] VITALS: BP 152/81; PULSE 70
== END 2023-08-13 18:15 | disposition home health service (06) | DRG 617 ==
LOC: ER 09:47 → EEVIPCON 09:47 → TELE 13:28 → TELE-EAST 15:38 → EAST 08-07 13:58
PROVIDERS: ADMIT Nurse Practitioner Family; ATTEND Internal Medicine Geriatric Medicine
PROC: 0Y6T0Z0 Detachment at Right 3rd Toe, Complete, Open Approach (ICD-10-PCS; principal; 2023-08-09 11:58)
DX: E11.69 Type 2 diabetes mellitus with other specified complication (principal); M86.8X7 Other osteomyelitis, ankle and foot; L03.031 Cellulitis of right toe; L97.519 Non-pressure chronic ulcer of other part of right foot with unspecified severity; N17.9 Acute kidney failure, unspecified; E11.621 Type 2 diabetes mellitus with foot ulcer; E11.65 Type 2 diabetes mellitus with hyperglycemia; I10 Essential (primary) hypertension; E66.01 Morbid (severe) obesity due to excess calories; B95.61 Methicillin susceptible Staphylococcus aureus infection as the cause of diseases classified elsewhere; E86.0 Dehydration; Z82.0 Family history of epilepsy and other diseases of the nervous system; Z68.20 Body mass index [BMI] 20.0-20.9, adult; Z82.3 Family history of stroke; Z82.49 Family history of ischemic heart disease and other diseases of the circulatory system; Z82.5 Family history of asthma and other chronic lower respiratory diseases; Z82.62 Family history of osteoporosis; Z83.3 Family history of diabetes mellitus; Z80.1 Family history of malignant neoplasm of trachea, bronchus and lung; Z80.0 Family history of malignant neoplasm of digestive organs; Z80.3 Family history of malignant neoplasm of breast; Z80.41 Family history of malignant neoplasm of ovary; Z80.8 Family history of malignant neoplasm of other organs or systems; Z81.8 Family history of other mental and behavioral disorders
CPT/HCPCS: 36415; 36569; 71045; 73630; 73718; 80048; 80053; 80202; 82565; 82962; 83605; 85025; 85610; 85652; 85730; 86141; 86850; 86900; 86901; 87040; 87070; 87075; 87077; 87081; 87186; 87205; 96365; G0378; J1100; J1815; J2405; J2704

== ENCOUNTER → 2023-08-19 | Outpatient (CLI) | payer OTHER ==
[~2023-08-19] MED LIST changes: +CHOL20007 PO; -DOXY1CAP57 PO; +ESCI10TA PO; +HYDR-4902 PO
[2023-08-19 12:40] LABS: Basophils # (auto) 0 10 ^3/uL (0-0.2); Basophils % (auto) 0.3 % (0.0-2.0); Eosinophils # (auto) 0.2 10 ^3/uL (0-0.8); Eosinophils % (auto) 2.3 % (0.0-7.0); Hematocrit 33.5 % (36.0-46.0); Hemoglobin 11.1 g/dL (12.2-16.2); Lymphocytes # (auto) 0.9 10 ^3/uL (0.4-5.4); Mean Corpuscular Hemoglobin 32.5 pg (28.0-32.0); Mean Corpuscular Volume 98.6 fL (80.0-100.0); Monocytes # (auto) 0.5 10 ^3/uL (0-1.3); Monocytes % (auto) 7.2 % (0.0-12.0); Neutrophils # (auto) 5.3 10 ^3/uL (1.6-8.6); Neutrophils % (auto) 77.2 % (37.0-80.0); Red Cell Distribution Width 13.3 % (11.8-14.3); White Blood Cell 6.9 10^3/uL (4.4-10.8)
[2023-08-19 12:58] LABS: Urine Bacteria FEW /hpf (None Seen); Urine Blood Negative /uL (Negative); Urine Budding Yeast MODERATE /hpf (None Seen); Urine Clarity HAZY (Clear); Urine Color Straw (Yellow); Urine Protein, UAD TRACE (Negative); Urine Specific Gravity 1.009 (1.001-1.035); Urine Urobilinogen Normal (Negative); Urine WBC 480 /hpf (0 - 5); Urine WBC Clumps PRESENT /hpf (None Seen); Urine pH 5.5 (5.0-8.0)
[2023-08-19 13:13] LABS: Erythrocyte Sedimentation Rate 66 mm/hr (0-20)
[2023-08-19 13:53] LABS: Alanine Aminotransferase 48 U/L (7-40); Albumin 3.6 g/dL (3.2-4.8); Alkaline Phosphatase 74 U/L (46-116); Anion Gap 7 (5-15); Aspartate Aminotransferase 40 U/L (13-40); BUN/Creatinine Ratio 17.7 (10.0-20.0); Bilirubin, Total 0.4 mg/dL (0.2-1.0); Blood Urea Nitrogen 25 mg/dL (9-23); Calcium 8.7 mg/dL (8.5-10.1); Carbon Dioxide 23 mmol/L (20-30); Chloride 103 mmol/L (98-107); Glucose 108 mg/dL (74-106); Potassium 4.8 mmol/L (3.5-5.1); Sodium 133 mmol/L (136-145); Total Protein 6.7 g/dL (5.7-8.2)
== END | disposition home or self-care (01) ==
LOC: LAB 12:14
PROVIDERS: ATTEND Internal Medicine
DX: E11.9 Type 2 diabetes mellitus without complications (principal); I10 Essential (primary) hypertension; D64.9 Anemia, unspecified; R60.9 Edema, unspecified
CPT/HCPCS: 36415; 80053; 81001; 83036; 83880; 85025; 85652

== ENCOUNTER → 2023-09-09 | Outpatient (CLI) | payer OTHER | END | disposition home or self-care (01) | LOC: EEVIPCON → XYW 13:32 | PROVIDERS: ATTEND Internal Medicine | DX: I11.9 Hypertensive heart disease without heart failure (principal) | CPT/HCPCS: 93306 ==

== ENCOUNTER → 2023-09-18 | Outpatient (CLI) | payer OTHER ==
[2023-09-18 16:30] LABS: Alanine Aminotransferase 24 U/L (7-40); Albumin 4.2 g/dL (3.2-4.8); Alkaline Phosphatase 73 U/L (46-116); Anion Gap 8 (5-15); Aspartate Aminotransferase 24 U/L (13-40); BUN/Creatinine Ratio 18.3 (10.0-20.0); Bilirubin, Total 0.7 mg/dL (0.2-1.0); Blood Urea Nitrogen 28 mg/dL (9-23); Calcium 9.6 mg/dL (8.5-10.1); Carbon Dioxide 26 mmol/L (20-30); Chloride 103 mmol/L (98-107); Glucose 251 mg/dL (74-106); Potassium 4.9 mmol/L (3.5-5.1); Sodium 137 mmol/L (136-145); Total Protein 7.4 g/dL (5.7-8.2)
[2023-09-18 16:31] LABS: Basophils # (auto) 0 10 ^3/uL (0-0.2); Basophils % (auto) 0.4 % (0.0-2.0); Eosinophils # (auto) 0.1 10 ^3/uL (0-0.8); Eosinophils % (auto) 1.2 % (0.0-7.0); Hematocrit 39.1 % (36.0-46.0); Hemoglobin 12.9 g/dL (12.2-16.2); Lymphocytes # (auto) 0.9 10 ^3/uL (0.4-5.4); Mean Corpuscular Hemoglobin 33.2 pg (28.0-32.0); Mean Corpuscular Volume 100.8 fL (80.0-100.0); Monocytes # (auto) 0.5 10 ^3/uL (0-1.3); Monocytes % (auto) 8.3 % (0.0-12.0); Neutrophils # (auto) 4.3 10 ^3/uL (1.6-8.6); Neutrophils % (auto) 74.1 % (37.0-80.0); Red Blood Cells 3.88 10^6/uL (4.0-5.20); Red Cell Distribution Width 15.8 % (11.8-14.3); White Blood Cell 5.8 10^3/uL (4.4-10.8)
== END | disposition home or self-care (01) ==
LOC: LAB 16:00
DX: M86.9 Osteomyelitis, unspecified (principal)
CPT/HCPCS: 36415; 80053; 85025

== ENCOUNTER → 2024-12-16 | Outpatient (CLI) | payer BC, OTHER ==
[~2024-12-16] MED LIST changes: +LOSA-535 PO; -LOSA100T58 PO
[2024-12-16 12:47] LABS: Urine Bacteria None Seen /hpf (None Seen)
[2024-12-16 12:52] LABS: Basophils # (auto) 0 10 ^3/uL (0-0.2); Basophils % (auto) 0.4 % (0.0-2.0); Eosinophils # (auto) 0.2 10 ^3/uL (0-0.8); Eosinophils % (auto) 4.9 % (0.0-7.0); Hematocrit 42.1 % (36.0-46.0); Lymphocytes % (auto) 23.5 % (10.0-50.0); Mean Corpuscular Hemoglobin 33.5 pg (28.0-32.0); Mean Corpuscular Hgb Conc. 33.2 g/dL (32.0-36.0); Mean Corpuscular Volume 100.7 fL (80.0-100.0); Monocytes # (auto) 0.4 10 ^3/uL (0-1.3); Monocytes % (auto) 9.6 % (0.0-12.0); Neutrophils # (auto) 2.8 10 ^3/uL (1.6-8.6); Neutrophils % (auto) 61.6 % (37.0-80.0); Platelet Count (auto) 214 10^3/uL (140-450); Red Blood Cells 4.18 10^6/uL (4.0-5.20); Red Cell Distribution Width 13.6 % (11.8-14.3); White Blood Cell 4.5 10^3/uL (4.4-10.8)
[2024-12-16 13:25] LABS: Alanine Aminotransferase 12 U/L (7-40); Albumin 4.4 g/dL (3.2-4.8); Alkaline Phosphatase 91 U/L (46-116); Anion Gap 9 (5-15); Aspartate Aminotransferase 18 U/L (13-40); BUN/Creatinine Ratio 15.8 (10.0-20.0); Blood Urea Nitrogen 21 mg/dL (9-23); CRP High Sensitivity 0.21 mg/dL (<1.0); Calcium 10.3 mg/dL (8.7-10.4); Carbon Dioxide 27 mmol/L (20-31); Chloride 99 mmol/L (98-107); Potassium 4.3 mmol/L (3.5-5.1); Total Protein 7.5 g/dL (5.7-8.2)
[2024-12-16 13:26] LABS: Bilirubin, Total 0.6 mg/dL (0.2-1.0)
[2024-12-16 13:36] LABS: Cholesterol 212 mg/dL (< 200); Glucose 155 mg/dL (74-106); HDL Cholesterol 73 mg/dL (40-59); LDL Cholesterol 110 mg/dL (< 100); Sodium 135 mmol/L (136-145); Triglycerides 171 mg/dL (< 150)
[2024-12-16 14:24] LABS: Urine Blood TRACE /uL (Negative); Urine Budding Yeast OCCASIONAL /hpf (None Seen); Urine Clarity Turbid (Clear); Urine Color Colorless (Yellow); Urine Protein, UAD Negative (Negative); Urine Specific Gravity 1.007 (1.001-1.035); Urine Squamous Epithelial Cell FEW /hpf (<5); Urine Urobilinogen Normal (Negative); Urine WBC 377 /HPF (0-5); Urine WBC Clumps PRESENT /hpf (None Seen); Urine pH 6.5 (5.0-9.0)
[2024-12-16 14:30] LABS: Creatinine, Urine 34.07 mg/dL (30.0-125.0)
== END | disposition home or self-care (01) ==
LOC: LAB 12:34
PROVIDERS: ATTEND Internal Medicine
DX: E11.22 Type 2 diabetes mellitus with diabetic chronic kidney disease (principal); N18.32 Chronic kidney disease, stage 3b; D51.9 Vitamin B12 deficiency anemia, unspecified
CPT/HCPCS: 36415; 80053; 80061; 81001; 82043; 82306; 82570; 82607; 83036; 84443; 85025; 86141

== ENCOUNTER 2025-02-17 08:10 | Outpatient (CLI) | payer OTHER ==
--- NOTE | 2025-02-17 09:50 | DVH ---
PROCEDURE: Ultrasound-guided biopsy Procedural Personnel Attending physician(s): Vlad Parham Fellow physician(s): None Resident physician(s): None Advanced practice provider(s): None Procedure Date (//yyyy): 02/17/2025 Pre-procedure diagnosis: Right parotid mass Post-procedure diagnosis: Same Indication: Histopathologic diagnosis Previous biopsy of same target: No Additional clinical history: None Complications: No immediate complications. IMPRESSION: Ultrasound-guided biopsy of right parotid mass. Plan: Specimen(s) sent for evaluation. PROCEDURE SUMMARY: - Percutaneous US-guided core needle biopsy - Additional procedure(s): None PROCEDURE DETAILS: Pre-procedure Reference imaging for biopsy target: MRI neck 01/15/2025 Consent: Informed consent for the procedure including risks, benefits and alternatives was obtained a nd time-out was performed prior to the procedure. Preparation: The site was prepared and draped using maximal sterile barrier technique including cutan eous antisepsis. Anesthesia/sedation Level of anesthesia/sedation: No sedation Anesthesia/sedation administered by: Not applicable Total intra-service sedation time (minutes): 0 Imaging prior to biopsy The patient was positioned supine. Initial imaging was performed. Biopsy target: - Organ or target location: Other-parotid gland - Laterality: Right - Maximal diameter (cm): 3.4 Other findings: None Biopsy Local anesthesia was administered. Under US guidance, the biopsy needle was advanced to the target an d biopsy was performed. Coaxial needle: None Core needle biopsy device: VSE EVAKUATORY ROSSII Core needle size: 20 gauge Number of core specimens: 2 On-site assessment of biopsy adequacy: No Additional sampling recommendations: None Preliminary assessment of sample adequacy: Not applicable Needle removal The biopsy needle was removed and a sterile dressing was applied. Tract embolization: None Imaging following biopsy Immediate post-biopsy ultrasound was performed. Post-biopsy imaging findings: No significant hemorrhage Additional Details Additional description of procedure: None Registry event: V/3/g Device used: None Equipment details: None Unique Device Identifiers: Not available Specimens removed: Biopsy samples as detailed above Estimated blood loss (mL): Less than 10 Standardized report: [id number] Attestation Signer name: Vlad Parham I attest that I was present for the entire procedure. I reviewed the stored images and agree with the report as written.
== END 2025-02-17 17:00 | disposition home or self-care (01) ==
LOC: US 08:10
PROVIDERS: ATTEND Internal Medicine
DX: K11.6 Mucocele of salivary gland (principal); K11.8 Other diseases of salivary glands; F41.8 Other specified anxiety disorders; Z79.4 Long term (current) use of insulin; Z79.84 Long term (current) use of oral hypoglycemic drugs; Z79.82 Long term (current) use of aspirin; Z79.899 Other long term (current) drug therapy; Z87.09 Personal history of other diseases of the respiratory system; Z82.3 Family history of stroke; Z82.49 Family history of ischemic heart disease and other diseases of the circulatory system
CPT/HCPCS: 42400; 76536; 76942

== ENCOUNTER 2025-03-17 10:39 | Outpatient (CLI) | payer OTHER ==
--- NOTE | 2025-03-17 12:51 | DVH ---
US US GUIDANCE FOR NEEDLE PLACEME, HISTORY: REPEAT PAROTID BX PROCEDURE: Informed consent was obtained. The patient was placed supine on the gurney, and limited US was performed of the right parotid gland. The skin over the area of interest was prepped with chlor hexidine which was allowed to dry and draped in the usual sterile fashion. Time out was performed. 1% local lidocaine was administered. With intermittent US guidance, an 18 gauge biopince was used to bi opsy the solid nodular part of the right parotid gland cystic mass. The outer coaxial needle/cannula was used to aspirate the cystic part. All samples placed in formalin. Post procedural images were obt ained. No immediate complication was identified. FINDINGS: Solid and cystic right parotid gland mass. Intra-procedural images demonstrate biopsy needl e within the margin of targeted lesion. Post procedural images do not demonstrate any significant hem orrhage. IMPRESSION: US guided core, and FNA biopsy of the cystic / solid right parotid gland mass. Pathology results pend ing.
== END 2025-03-17 17:00 | disposition home or self-care (01) ==
LOC: US 10:39 → EEVIPCON 10:39 → US 17:00
PROVIDERS: ATTEND Internal Medicine
DX: K11.8 Other diseases of salivary glands (principal); R22.1 Localized swelling, mass and lump, neck
CPT/HCPCS: 42400; 76942